=== PATIENT | female | born 1955 | race Caucasian/White ===

== ENCOUNTER → 2019-03-05 09:23 | Outpatient (CLI) | payer MEDICARE, SELFPAY ==
[2019-03-05 14:11] LABS: Alanine Aminotransferase 22 U/L (12-78); Albumin Level 3.6 gm/dL (3.4-5.0); Albumin/Globulin Ratio 1.2 (1.1-1.8); Alkaline Phosphatase 61 U/L (46-116); Anion Gap 12.5 mEq/L (5-15); Aspartate Amino Transferase 11 U/L (15-37); Bilirubin,Total 0.5 mg/dL (0.2-1.0); Blood Urea Nitrogen 13 mg/dL (7-18); Calcium 8.5 mg/dL (8.5-10.1); Carbon Dioxide 29 mmol/L (21.0-32.0); Chloride 104 mmol/L (98-107); Creatinine,Serum 0.64 mg/dL (0.55-1.02); Estimated Glomerular Filt Rate 93 ml/min (>60); GFR (African American) 112 ML/MIN (>60); Globulin 2.9 gm/dl (1.3-3.2); Glucose 93 mg/dL (74-106); Potassium 4.5 mmoL/L (3.5-5.1); Sodium 141 mmol/L (136-145); Total Protein,Serum 6.5 gm/dL (6.4-8.2)
== END ==
PROVIDERS: PCP Nurse Practitioner Family; Visit Provider Nurse Practitioner Family
DX: I10 Essential (primary) hypertension (principal)
CPT/HCPCS: 36415; 80053

== ENCOUNTER → 2021-04-13 13:03 | Outpatient (CLI) | payer MEDICARE, SELFPAY ==
--- NOTE | 2021-04-13 13:06 | XR_ITS ---
PROCEDURE: XR DEXA AXIAL SKELETON CLINICAL HISTORY: AGE-RELATED OSTEOPOROSIS W/O CURRENT PATHOLOGICAL FRACTURE COMPARISON: No exams were available for comparison FINDINGS: The right hip BMD is 0.687 with a T-score of -1.5. The left hip BMD is 0.681 with a T-score of -1.5. The lumbar spine BMD is 1.117 with a T-score of 0.6. IMPRESSION: This patient is considered osteopenic according to the World Health Organization criteria. Bone density is between 10 and 25 percent below young normal. Fracture risk is moderate. Treatment is advised. Based on these results a follow-up exam is recommended in 2 year. Dictated by: Efrain Neal MD 04/13/2021 20:22 Efrain Neal MD in [place] 04/16/2021 08:37
== END ==
PROVIDERS: PCP Nurse Practitioner Family; Visit Provider Nurse Practitioner Family
DX: M81.0 Age-related osteoporosis without current pathological fracture (principal)
CPT/HCPCS: 77080

== ENCOUNTER → 2022-10-25 14:21 | Outpatient (CLI) | payer MEDICARE, SELFPAY ==
--- NOTE | 2022-10-25 14:28 | XR_ITS ---
FINAL REPORT CLINICAL HISTORY: HIP right hip pain after fall after thanksgiving FINDINGS: Right hip Three views were obtained. There is no acute fracture or dislocation. There is a small bone island in the proximal femoral shaft. There is mild cortical thickening in the proximal femoral shaft laterally, probably related to tendon attachment. The joint spaces appear normal. No soft tissue abnormality is identified. IMPRESSION: No acute process. Reviewed, Interpreted and Dictated by Austin Storey MD Transcribed by Mary Jo Frederick Authenticated and [facility]
== END ==
PROVIDERS: PCP Nurse Practitioner Family; Visit Provider Nurse Practitioner Family
DX: M25.551 Pain in right hip (principal)
CPT/HCPCS: 73502

== ENCOUNTER → 2023-01-21 16:19 | Outpatient (CLI) | payer MEDICARE, SELFPAY ==
--- NOTE | 2023-01-21 16:28 | XR_ITS ---
PROCEDURE INFORMATION: Exam: XR Right Hip Exam date and time: 01/21/2023 4:33 PM Age: 68 years old Clinical indication: Pain and injury or trauma; Fall; Blunt trauma (contusions or hematomas); Hip pain; Right hip; Additional info: Pain in right hip joint, fell aug 2022 & fell yesterday. Pain is worse since most recent fall. No prior SX. TECHNIQUE: Imaging protocol: Radiologic exam of the right hip. Views: 2 or 3 views hip with pelvis when performed. COMPARISON: CR XR HIP RT 2-3V W/PELVIS 10/25/2022 2:30 PM FINDINGS: Bones/joints: Cortical thickening along the lateral aspect of the right proximal femoral diaphysis with traverse intracortical fracture line involving the thickened cortex. Findings consistent with stress fracture with strong association with bisphosphonate usage. Finding is similar to prior. Femoral head is well seated within the acetabulum bilaterally. Mild degenerative changes of both hips. Soft tissues: Unremarkable. Vasculature: Multiple phleboliths in the pelvis noted. IMPRESSION: Cortical thickening along the lateral aspect of the right proximal femoral diaphysis with traverse intracortical fracture line involving the thickened cortex. Findings consistent with stress fracture with strong association with bisphosphonate usage.
== END ==
PROVIDERS: PCP Nurse Practitioner Family; Visit Provider Nurse Practitioner Family
DX: M25.551 Pain in right hip (principal)
CPT/HCPCS: 73502

== ENCOUNTER 2023-04-23 09:00 | Outpatient (RCR) | payer MEDICARE, SELFPAY | END 2023-04-28 13:55 | disposition home or self-care (01) | LOC: PT 09:00 | PROVIDERS: PCP Nurse Practitioner Family; Visit Provider Orthopaedic Surgery | DX: M25.551 Pain in right hip (principal); M84.351A Stress fracture, right femur, initial encounter for fracture | CPT/HCPCS: 97010; 97014; 97110; 97112; 97163; 97164; 97530; G0283 ==

== ENCOUNTER 2024-03-22 15:13 | Outpatient (CLI) | payer MEDICARE, SELFPAY ==
--- NOTE | 2024-03-22 15:18 | MR_ITS ---
FINAL REPORT CLINICAL HISTORY: PAIN OF LEFT SHOULDER JOINT NKI LIMITED ROM FINDINGS: Multiplanar MR imaging of the left shoulder was performed without contrast. A partial-thickness articular surface tear is seen of the distal infraspinatus tendon involving less than 50% of the thickness of the tendon. No full-thickness rotator cuff tear is identified. The a.c. joint is intact. A small amount of fluid is present in the subacromial/subdeltoid bursa. The glenoid labrum is intact. The long head of the biceps tendon is intact. A small glenohumeral joint effusion is seen. There is no evidence of fracture or dislocation. The musculature is intact. Thickening and heterogeneity is seen of the joint capsule at the axillary recess consistent with adhesive capsulitis. IMPRESSION: Small partial-thickness articular surface tear of the distal infraspinatus tendon without evidence of full-thickness rotator cuff tear. Findings consistent with adhesive capsulitis. Authenticated and [facility]
== END 2024-03-22 23:59 | disposition home or self-care (01) ==
LOC: RAD 15:14
PROVIDERS: PCP Nurse Practitioner Family; Visit Provider Nurse Practitioner Family
DX: M25.512 Pain in left shoulder (principal)
CPT/HCPCS: 73221

== ENCOUNTER 2024-04-01 13:44 | Outpatient (CLI) | payer MEDICARE, SELFPAY ==
--- NOTE | 2024-04-01 13:49 | XR_ITS ---
FINAL REPORT CLINICAL HISTORY: Foot Pain COMPARISON: None FINDINGS: RIGHT FOOT 3 views of the right foot were obtained. There is no acute fracture or dislocation. There is mild degenerative change. Visualized joint spaces are normally aligned. Soft tissues are unremarkable. IMPRESSION: Mild degenerative change without acute bony abnormality. Reviewed, Interpreted and Dictated by Henri Rodney III, MD Transcribed by Olga Shearer Authenticated and [facility]
--- NOTE | 2024-04-01 13:49 | XR_ITS ---
FINAL REPORT CLINICAL HISTORY: Foot Pain COMPARISON: None FINDINGS: LEFT FOOT Three views of the left foot demonstrate no acute fracture or dislocation. There is moderate degenerative change of the 1st MTP. There is mild degenerative change elsewhere in the foot. The visualized joint spaces are normally aligned. The soft tissues are unremarkable. IMPRESSION: Degenerative changes without acute bony abnormality. Reviewed, Interpreted and Dictated by Henri Rodney III, MD Transcribed by Olga Shearer Authenticated and . [facility]
== END 2024-04-01 23:59 | disposition home or self-care (01) ==
LOC: RAD 13:45
PROVIDERS: PCP Nurse Practitioner Family; Visit Provider Podiatrist
DX: M79.671 Pain in right foot (principal); M79.672 Pain in left foot
CPT/HCPCS: 73630

== ENCOUNTER 2024-05-27 08:00 | Outpatient (RCR) | payer MEDICARE, SELFPAY | END 2024-06-08 14:45 | disposition home or self-care (01) | LOC: PT 08:00 | PROVIDERS: Visit Provider Nurse Practitioner Family | DX: M75.122 Complete rotator cuff tear or rupture of left shoulder, not specified as traumatic (principal) | CPT/HCPCS: 97010; 97014; 97110; 97140; 97163; 97164; 97530; G0283 ==

== ENCOUNTER 2025-05-08 18:49 | Emergency (ER) | payer MEDICARE, SELFPAY ==
[2025-05-08 18:50] VITALS: BP 175/78; PULSE 70; RESP 18; TEMP 36.7; O2SAT 99; BMI 25.7
--- OUTSIDE RECORDS SUMMARY | 2025-05-08 19:00 | XMS_ITS | Encounter Summary ---
Author Organization [employer] ([place], [place], [place], [place]) Address [address] [place] [address] Care Team Providers Care Scrap Preparation Supervisor Name Role Phone Cherrie Leyva APRN Primary Care Provider [phone] Reason for Referral * Nuclear Medicine (Routine) - Closed Specialty Diagnoses / Procedures Referred By Tatiana t Referred To Contact Diagnoses Left hip pain Right hip pain Procedures NM bone scan whole body Provider, Not In System [place] Referral ID Status Reason Start Date Expiration Date Visits Re quested Visits Authorized [id number] Closed 01/24/2023 07/23/2023 1 1 Encounter Details Date Type Department Care Team (Late st Contact Info) Description 01/24/2023 Outside Orders [facility] Central Scheduling [address] [place] [address] Althea Pickard RN Bilateral hip pain (Primary Dx); Left hip pain; Right hip pain Social History Tobacco Use Types Packs/Day Years Used Date Smoking Tobacco: Never Assessed Comments Unknown Sex and Gender Information Value Date Recorded Sex Assigned at Not on file Legal Sex Female 12:46 PM CDT Gender Identity Not on file Sexual Orientation Not on file documented as of this encounter Plan of Treatment Not on file documented as of this encounter Results * NM bone scan whole body (02/06/2023 2:18 PM EDT) Anatomical Region Laterality Modality Bone Nuclear Medicine 02/06/2023 3:31 PM EDT Impressions 02/06/2023 3:44 PM EDT There is focal activity in the proximal right and left femoral shafts. Bilateral femur x-rays are recommended. Images reviewed, interpreted, and dictated by Dr. Don Garcia. Transcribed by Gabriel Gómez (Jonathon). Narrative 02/06/2023 3:44 PM EDT TOTAL BODY BONE SCAN HISTORY: Right hip pain. COMPARISON: Existing relevant imaging studies: None. COMPARISON: Previous bone scan: May 2008. PROCEDURE: The patient was injected with 29.8 mCi of technetium 99m MDP. Three hour delayed images were obtained. FINDINGS: Renal and soft tissue uptake are normal. There is focal activity in the proximal right and left femoral shafts. No other abnormal tracer activity is identified to suggest occult fracture or metastatic disease. Procedure Note Aydin Garcia MD - 02/06/2023 TOTAL BODY BONE SCAN HISTORY: Right hip pain. COMPARISON: Existing relevant imaging studies: None. COMPARISON: Previous bone scan: May 2008. PROCEDURE: The patient was injected with 29.8 mCi of technetium 99m MDP. Three hour delayed images were obtained. FINDINGS: Renal and soft tissue uptake are normal. There is focal activity in the proximal right and left femoral shafts. No other abnormal tracer activity is identified to suggest occult fracture or metastatic disease. IMPRESSION: There is focal activity in the proximal right and left femoral shafts. Bilateral femur x-rays are recommended. Images reviewed, interpreted, and dictated by Dr. Don Garcia. Transcribed by Gabriel Gómez (Jonathon). us Not In System Provider IMG NM ORDERABLES Final R esult documented in this encounter Visit Diagnoses Diagnosis Bilateral hip pain- Primary Pain in joint, pelvic region and thigh Left hip pain Pain in joint, pelvic region and thigh Right hip pain Pain in joint, pelvic region and thigh Left hip pain Pain in joint, pelvic region and thigh Right hip pain Pain in joint, pelvic region and thigh documented in this encounter Care Teams Scrap Preparation Supervisor Relationship Specialty Start Date End Date Cherrie Leyva, SECURITY CLERK [address] [place] [id number] PCP - General Family Medicine 02/06/23 documented as of this encounter
--- OUTSIDE RECORDS SUMMARY | 2025-05-08 19:00 | XMS_ITS | Data Portability ---
Author Organization [employer] [facility] Address [address] [place] [address] Assessment Encounter Date Assessment Date Assessment LastModified by Organization Details LastModified Time 04/28/2024 04/28/2024 Patient presente d to office today for their Medicare Annual Wellness Visit. Education was provided on healthy nutrition, including a diet rich in fruits and vegetables, minimizing simple carbohydrates, salt, and saturated fats. Encouraged regular cardiovascular exercise such as walking at least 30 minutes daily, 5 times per week. Emphasized preventive health measures and educated pt on fall prevention and community-based lifestyle interventions to help reduce health risks and promote healthy living. 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 If she is unable to schedule with their office in the next few weeks, she would like to try a female provider at [facility]. Urine was normal on dipstick today, will send for culture to r/o infection. Follow up if no improvement or worsening and as needed. Not available 05/12/2024 10:37:27 Plan of Treatment Reminders Order Date Submit Date Provider Last Modified By Organization Details Last Modified Time Details Appointments FOLLOW UP 30 2025 09:00A Alyson Leyva APRN Not available Not available Not available Lab lipid panel, serum 2024 025 [place] [facility], [address] [place] [address], [place], [address], 10/30/2024 08:11:43 vitamin D, 25-hydrox y, total, serum 2024 025 [place] [facility] ([place]), [address] [facility], [place], [address], 10/30/2024 08:11:43 TSH, ultra-sen sitive, serum 2024 025 [place] [facility] ([place]), [address] [facility], [place], [address], 10/30/2024 08:11:44 CBC w/ auto diff 2024 025 [place] [facility] ([place]), [address] [facility], [place], [address], 10/30/2024 08:11:42 CMP, serum or plasma 2024 025 [place] [facility] [address] [facility], [place], [address], 10/30/2024 08:11:43 rapid flu (A+B) [address], [address], 09/22/2024 15:52:10 rapid SARS CoV 2 Ag, QL, IA, upper respirato ry specimen 2023 024 [facility], [address] [place] [address], [address], 09/22/2024 15:52:15 urinalysi s, dipstick 2023 024 [email or web address] [facility], [address] [place] [address], [address], 05/12/2024 10:36:17 culture, urine 2023 024 [facility], [address], [place], [address], 05/16/2024 09:38:02 vitamin D, 25-hydrox y, total, serum 2023 024 [employer] [facility], [address], [place], [address], 04/29/2024 08:29:08 CMP, serum or plasma 2023 024 [employer] [facility], [address], [place], [address], 04/29/2024 08:29:08 Referral orthopedi c surgeon referral - Malunion right hip fracture in pt with osteoporo sis 2024 025 ARETHA Florez MD, [address] [facility], [address], [place], [address], 05/02/2025 16:28:46 gynecolog ist referral - ELKIN (cannot go on May 21 - any other day is fine) 2023 024 JESSICAGUY Ribera MD, [address] [facility], [place], [address], 05/28/2024 09:55:50 physical therapist referral 2023 [facility], [address], [place], [address], 05/12/2024 13:28:58 Procedures None recorded. Surgeries None recorded. Imaging None recorded. Medication Orders meloxicam 15 mg tablet [address] [facility] (Now [facility]), [address], [place], [address], 05/02/2025 13:38:42 hydrochlo rothiazid e 12.5 mg tablet [address] [facility] ([facility]), [address], [place], [address], 05/02/2025 13:38:42 metoprolo l succinate ER 25 mg tablet,ex tended release 24 hr [address] [facility] ([facility]), [address], [place], [address], 05/02/2025 13:38:43 simvastat in 20 mg tablet [address] [facility] (Now [facility]), [address], [place], [address], 10/29/2024 11:09:42 meloxicam 15 mg tablet [address] [facility] ([facility]), [address], [place], [address], 10/29/2024 11:09:44 hydrochlo rothiazid e 12.5 mg tablet 2024 025 [facility], [address], [place], [address], 10/29/2024 11:09:42 metoprolo l succinate ER 25 mg tablet,ex tended release 24 hr [address] [facility] ([facility]), [address], [place], [address], 10/29/2024 11:09:43 azithromy sue 250 mg tablet 2023 025 [facility], [address] [place] [address], [address], 10/29/2024 11:03:36 promethaz ine-DM 6.25 mg-15 mg/5 mL oral syrup 2023 025 [facility], [address] [place] [address], [address], 10/29/2024 11:03:38 cetirizin e 5 mg tablet 2023 024 [facility], [address] [place], [address], 12/24/2024 09:52:21 Patient TargetsNo targets recorded. Patient Instructions Encounter Date Encounter Id Patient Instructions Last Modified By Organization Details Last Modified Time 04/28/2024 [id number] advance care planning: care instructions Not available 04/28/2024 14:08:29 Discussed and explained advance directives such as standard forms to the . Face to face discussion lasted for a duration of ___ minutes. Not available 04/28/2024 13:51:47 05/12/2024 [id number] vaginal bleeding after menopause: care instructions Not available 05/12/2024 10:36:14 Reason for Referral Physical Therapist Referral for Adhesive capsulitis of left shoulder Referring Physician: [facility], Encounter Date: 04/28/2024 [employer] Referral for Po stmenopausal bleeding ELKIN (cannot go on May 21 - any other day is fine) Referring Physician: Sissy Szymanski [facility], Encounter Date: 05/12/2024 Orthopedic Surgeon Referral for History of hip fracture Malunion right hip fracture in pt with osteoporosis Referring Physician: [facility], Encounter Date: 05/02/2025 Results Created Date Observation Date Name Description Value Unit Range Abnormal Flag Note LastModifiedBy Organization Detail LastModifiedTime 04/28/2004/29/2024 COMPR EHENS ERIKA METAB OLIC PANEL glucose 87 mg/dL 65-139 normal Non-f astin g refer ence inter lawson Not Available [facility] [address] [facility] [place], [address], 04/29/2024 08:29:08 04/28/20 24 04/29/2024 COMPR EHENS ERIKA METAB OLIC PANEL urea nitrogen (BUN) 15 mg/dL 7-25 normal Not Available [employer] [facility] [address] [place], [address], 04/29/2024 08:29:08 04/28/20 24 04/29/2024 COMPR EHENS ERIKA METAB OLIC PANEL creatinine 0.70 mg/dL 0.60-1 .00 normal Not Available [facility] [address] [place], [address], 04/29/2024 08:29:08 04/28/20 24 04/29/2024 COMPR EHENS ERIKA METAB OLIC PANEL eGFR 92 mL/mi n/1.7 3m2 > or = 60 normal Not Available [facility] [address] [place], [address], 04/29/2024 08:29:08 04/28/20 24 04/29/2024 COMPR EHENS ERIKA METAB OLIC PANEL BUN/creatini ne ratio SEE NOTE: (calc ) 6-22 Not Repor megan: BUN and Creat inine are withi n refer ence range . Not Available [employer] [facility] [address] [place], [address], 04/29/2024 08:29:08 04/28/20 24 04/29/2024 COMPR EHENS ERIKA METAB OLIC PANEL sodium 139 mmol/ L 135-14 6 normal Not Available [employer] [facility] [address] [place], [address], 04/29/2024 08:29:08 04/28/20 24 04/29/2024 COMPR EHENS ERIKA METAB OLIC PANEL potassium 3.8 mmol/ L 3.5-5. 3 normal Not Available [employer] [facility] [address] [place], [address], 04/29/2024 08:29:08 04/28/20 24 04/29/2024 COMPR EHENS ERIKA METAB OLIC PANEL chloride 101 mmol/ L 98-110 normal Not Available [facility] [address] [facility] [place], [address], 04/29/2024 08:29:08 04/28/20 24 04/29/2024 COMPR EHENS ERIKA METAB OLIC PANEL carbon dioxide 29 mmol/ L 20-32 normal Not Available [facility] [address] [place], [address], 04/29/2024 08:29:08 04/28/20 24 04/29/2024 COMPR EHENS ERIKA METAB OLIC PANEL calcium 9.7 mg/dL 8.6-10 .4 normal Not Available [facility] [address] [facility] [place], [address], 04/29/2024 08:29:08 04/28/20 24 04/29/2024 COMPR EHENS ERIKA METAB OLIC PANEL protein, total 6.9 g/dL 6.1-8. 1 normal Not Available [facility] [address] [place], [address], 04/29/2024 08:29:08 04/28/20 24 04/29/2024 COMPR EHENS ERIKA METAB OLIC PANEL albumin 4.4 g/dL 3.6-5. 1 normal Not Available [facility] [address] [place], [address], 04/29/2024 08:29:08 04/28/20 24 04/29/2024 COMPR EHENS ERIKA METAB OLIC PANEL globulin 2.5 g/dL_ (calc ) 1.9-3. 7 normal Not Available [facility] [address] [place], [address], 04/29/2024 08:29:08 04/28/20 24 04/29/2024 COMPR EHENS ERIKA METAB OLIC PANEL albumin/glob ulin ratio 1.8 (calc ) 1.0-2. 5 normal Not Available [facility] [employer] [facility] [address] [place], [address], 04/29/2024 08:29:08 04/28/20 24 04/29/2024 COMPR EHENS ERIKA METAB OLIC PANEL bilirubin, total 0.4 mg/dL 0.2-1. 2 normal Not Available [facility] [employer] [facility] [address] [place], [address], 04/29/2024 08:29:08 04/28/20 24 04/29/2024 COMPR EHENS ERIKA METAB OLIC PANEL alkaline phosphatase 70 U/L 37-153 normal Not Available [employer] [facility] [address] [place], [address], 04/29/2024 08:29:08 04/28/20 24 04/29/2024 COMPR EHENS ERIKA METAB OLIC PANEL AST 13 U/L 10-35 normal Not Available [facility] [employer] [facility] [address] [place], [address], 04/29/2024 08:29:08 04/28/20 24 04/29/2024 COMPR EHENS ERIKA METAB OLIC PANEL ALT 8 U/L 6-29 normal Not Available [facility] [employer] [facility] [address] [place], [address], 04/29/2024 08:29:08 04/28/20 24 04/29/2024 VITAM IN D,25- OH,TO URSULA,I A vitamin D,25-oh,tota l,ia 13 NG/mL 30-100 low Vitam in D Statu s 25-OH Vitam in D: Defic iency : <20 ng/mL Insuf ficie ncy: 20 - 29 ng/mL Optim al: > or = 30 ng/mL For 25-OH Vitam in D testi ng on patie nts on D2-yeh pplem entat ion and patie nts for whom quant itati on of D2 and D3 fract ions is requi red, the [facility] e[facility](TM ) 25-OH VIT D, (D2,D 3), LC/MS /MS is recom joseph d: order code 20856 (sendy ents >2yrs ). See Note 1 Note 1 For addit ional infor rossana morgan refer to http: //blaire Ferguson stDia gnost ics.c om/fa q/FAQ 199 (This link is being provi ded for infor theodora branch/ educa luz marina monge purpo ses only. ) Not Available [facility] [address] [facility], [place], [address], 04/29/2024 08:29:08 05/12/20 24 05/16/2024 CULTU RE, URINE , ROUTI NE culture, urine, routine SEE NOTE abnormal CULTU RE, URINE , ROUTI NE Micro Numbe r: [id number] Test Statu s: Final Speci men Sourc e: Urine Speci men Quali ty: Adequ ate Resul t: 50,00 0-100 ,000 CFU/m L of Klebs iella pneum oniae 50,00 0-100 ,000 CFU/m L of Enter ococc shin Moniquee goran ae EDeshaunhong calis ----- ----- ----- - ----- ----- ----- - INT WILLAM INT WILLAM AMOX/ CLAVU LANAT E S <=2 * AMPIC ILLIN * S <=2 AMP/S ULBAC SANCHEZ S 4 * CEFAZ MAYTE NR <=4 2 * CEFEP ALYCIA S <= 0.12 * CEFTA ZIDIM E S <=1 * CEFTR IAXON E S <=0.2 5 * CIPRO FLOXA SUE S <=0.0 6 * GENTA MICIN S <=1 * IMIPE NEM S <=0.2 5 * LEVOF LOXAC IN S <=0.1 2 * MEROP ENEM S <=0.2 5 * NITRO FURAN TOIN I 64 S <=16 PIP/T AZOBA CTAM S <=4 * TRIME THOPR IM/YEH LFA S <=20 * VANCO MYCIN * S 2 S=Hanna cepti ble I=Int ermed iate R=Res istan t * = Not Teste d NR = Not Repor megan NN = See Thera py Comme nts THERA PY COMME NTS Note 1: For infec tions other than uncom plica megan UTI cause d by E. coli, K. pneum oniae or P. mirab ilis: Cefaz mayte is resis tant if WILLAM > or = 8 mcg/m L. (Dist ingui shing susce ptibl e versu s inter media te for isola braydon with WILLAM < or = 4 mcg/m L requi res addit ional testi ng.) Note 2: For uncom plica megan UTI cause d by E. coli, K. pneum oniae or P. mirab ilis: Cefaz mayte is susce ptibl e if WILLAM <32 mcg/m L and predi cts susce ptibl e to the oral agent s cefac felice, cefdi dulce, cefpo doxim e, cefpr ozil, cefur oxime , cepha lexin and lorac arbef . Not Available [employer] [facility] [address] [place] [address], [place], [address], 05/16/2024 09:38:02 05/12/20 24 05/12/2024 urina lysis , dipst ick Leukocytes Negati ve Not Available [address], [address], 05/12/2024 10:14:32 05/12/20 24 05/12/2024 urina lysis , dipst ick Nitrite negati ve Not Available [address], [address], 05/12/2024 10:14:32 05/12/20 24 05/12/2024 urina lysis , dipst ick Urobilinogen .2 Not Available [facility] [address], [address], 05/12/2024 10:14:32 05/12/20 24 05/12/2024 urina lysis , dipst ick Protein Negati ve Not Available [address], [address], 05/12/2024 10:14:32 05/12/20 24 05/12/2024 urina lysis , dipst ick pH 7.5 Not Available [address], [address], 05/12/2024 10:14:32 05/12/2005/12/2024 urina lysis , dipst ick Blood Negati ve Not Available [address], [address], 05/12/2024 10:14:32 05/12/20 24 05/12/2024 urina lysis , dipst ick Specific Mcfaddin 1.015 Not Available [address], [address], 05/12/2024 10:14:32 05/12/20 24 05/12/2024 urina lysis , dipst ick Ketone Negati ve Not Available [address], [address], 05/12/2024 10:14:32 05/12/2005/12/2024 urina lysis , dipst ick Bilirubin Negati ve Not Available [address], [address], 05/12/2024 10:14:32 05/12/2005/12/2024 urina lysis , dipst ick Glucose Negati ve Not Available [address], [address], 05/12/2024 10:14:32 05/12/20 24 05/12/2024 urina lysis , dipst ick Appearance Clear Not Available [address], [address], 05/12/2024 10:14:32 05/12/20 24 05/12/2024 urina lysis , dipst ick Color Dark Yellow Not Available [address], [address], 05/12/2024 10:14:32 09/22/20 24 09/22/2024 rapid SARS CoV 2 Ag, QL, IA, upper respi rator y speci men SARS CoV Ag negati ve Not Available [address], [address], 09/22/2024 15:33:01 09/22/20 24 09/22/2024 rapid flu (A+B) Flu A negati ve Not Available [address], [address], 09/22/2024 15:32:55 09/22/20 24 09/22/2024 rapid flu (A+B) Flu B negati ve Not Available [address], [address], 09/22/2024 15:32:55 10/29/19 25 10/30/2024 CBC WITH DIFFE RENTI AL/PL ATELE T WBC 6.9 x10e3 /uL 3.4-10 .8 normal Not Available [facility] ([facility]) [address] [facility], [place], [address], 10/30/2024 08:11:42 10/29/19 25 10/30/2024 CBC WITH DIFFE RENTI AL/PL ATELE T RBC 4.97 x10e6 /uL 3.77-5 .28 normal Not Available [facility] ([facility]) [address] [facility], [place], [address], 10/30/2024 08:11:42 10/29/19 25 10/30/2024 CBC WITH DIFFE RENTI AL/PL ATELE T hemoglobin 14.4 g/dL 11.1-1 5.9 normal Not Available [facility] ([facility]) [address] [facility], [place], [address], 10/30/2024 08:11:42 10/29/19 25 10/30/2024 CBC WITH DIFFE RENTI AL/PL ATELE T hematocrit 44.9 % 34.0-4 6.6 normal Not Available [facility] ([facility]) [address] [facility], [place], [address], 10/30/2024 08:11:42 10/29/19 25 10/30/2024 CBC WITH DIFFE RENTI AL/PL ATELE T MCV 90 fL 79-97 normal Not Available [facility] ([facility]) [address] [place], [address], 10/30/2024 08:11:42 10/29/19 25 10/30/2024 CBC WITH DIFFE RENTI AL/PL ATELE T MCH 29.0 pg 26.6-3 3.0 normal Not Available [facility] ([facility]) [address] [place], [address], 10/30/2024 08:11:42 10/29/19 25 10/30/2024 CBC WITH DIFFE RENTI AL/PL ATELE T MCHC 32.1 g/dL 31.5-3 5.7 normal Not Available [facility] ([facility]) [address] [place], [address], 10/30/2024 08:11:42 10/29/19 25 10/30/2024 CBC WITH DIFFE RENTI AL/PL ATELE T RDW 12.4 % 11.7-1 5.4 Not Available [facility] ([facility]) [address] [facility], [place], [address], 10/30/2024 08:11:42 10/29/19 25 10/30/2024 CBC WITH DIFFE RENTI AL/PL ATELE T platelets 278 x10e3 /uL 150-45 0 normal Not Available [facility] ([facility]) [address] [facility], [place], [address], 10/30/2024 08:11:42 10/29/19 25 10/30/2024 CBC WITH DIFFE RENTI AL/PL ATELE T neutrophils 56 % not estab. normal Not Available [facility] ([facility]) [address] [facility], [place], [address], 10/30/2024 08:11:42 10/29/19 25 10/30/2024 CBC WITH DIFFE RENTI AL/PL ATELE T lymphs 29 % not estab. normal Not Available [facility] ([facility]) [address] [facility], [place], [address], 10/30/2024 08:11:42 10/29/19 25 10/30/2024 CBC WITH DIFFE RENTI AL/PL ATELE T monocytes 10 % not estab. normal Not Available [facility] ([facility]) [address] [facility], [place], [address], 10/30/2024 08:11:42 10/29/19 25 10/30/2024 CBC WITH DIFFE RENTI AL/PL ATELE T eos 3 % not estab. normal Not Available [facility] ([facility]) [address] [facility], [place], [address], 10/30/2024 08:11:42 10/29/19 25 10/30/2024 CBC WITH DIFFE RENTI AL/PL ATELE T basos 1 % not estab. normal Not Available [facility] ([facility]) [address] [facility], [place], [address], 10/30/2024 08:11:42 10/29/19 25 10/30/2024 CBC WITH DIFFE RENTI AL/PL ATELE T immature cells [employer] Not Available [facility] ([facility]) [address] [facility], [place], [address], 10/30/2024 08:11:42 10/29/19 25 10/30/2024 CBC WITH DIFFE RENTI AL/PL ATELE T neutrophils (absolute) 4.0 x10e3 /uL 1.4-7. 0 normal Not Available [facility] ([facility]) [address] [facility], [place], [address], 10/30/2024 08:11:42 10/29/19 25 10/30/2024 CBC WITH DIFFE RENTI AL/PL ATELE T lymphs (absolute) 2.0 x10e3 /uL 0.7-3. 1 normal Not Available [facility] ([facility]) [address] [place], [address], 10/30/2024 08:11:42 10/29/19 25 10/30/2024 CBC WITH DIFFE RENTI AL/PL ATELE T monocytes(ab solute) 0.7 x10e3 /uL 0.1-0. 9 normal Not Available [facility] ([facility]) [address] [place], [address], 10/30/2024 08:11:42 10/29/19 25 10/30/2024 CBC WITH DIFFE RENTI AL/PL ATELE T eos (absolute) 0.2 x10e3 /uL 0.0-0. 4 normal Not Available [facility] ([facility]) [address] [place], [address], 10/30/2024 08:11:42 10/29/19 25 10/30/2024 CBC WITH DIFFE RENTI AL/PL ATELE T baso (absolute) 0.0 x10e3 /uL 0.0-0. 2 normal Not Available [facility] ([facility]) [address] [facility], [place], [address], 10/30/2024 08:11:42 10/29/19 25 10/30/2024 CBC WITH DIFFE RENTI AL/PL ATELE T immature granulocytes 1 % not estab. Not Available [facility] ([facility]) [address] [facility], [place], [address], 10/30/2024 08:11:42 10/29/19 25 10/30/2024 CBC WITH DIFFE RENTI AL/PL ATELE T immature grans (abs) 0.0 x10e3 /uL 0.0-0. 1 Not Available [facility] ([facility]) [address] [facility], [place], [address], 10/30/2024 08:11:42 10/29/19 25 10/30/2024 CBC WITH DIFFE RENTI AL/PL ATELE T NRBC [employer] Not Available [facility] ([facility]) [address] [facility], [place], [address], 10/30/2024 08:11:42 10/29/19 25 10/30/2024 CBC WITH DIFFE RENTI AL/PL ATELE T hematology comments: [employer] Not Available [facility] ([facility]) [address] [facility], [place], [address], 10/30/2024 08:11:42 10/29/19 25 10/30/2024 COMP. METAB OLIC PANEL (14) glucose 94 mg/dL 70-99 normal Not Available [facility] ([facility]) [address] [facility] [place], [address], 10/30/2024 08:11:42 10/29/19 25 10/30/2024 COMP. METAB OLIC PANEL (14) BUN 11 mg/dL 8-27 normal Not Available [facility] ([facility]) [address] [place], [address], 10/30/2024 08:11:42 10/29/19 25 10/30/2024 COMP. METAB OLIC PANEL (14) creatinine 0.69 mg/dL 0.57-1 .00 normal Not Available [facility] ([facility]) [address] [facility] [place], [address], 10/30/2024 08:11:42 10/29/19 25 10/30/2024 COMP. METAB OLIC PANEL (14) eGFR 93 mL/mi n/1.7 3 >59 normal Not Available [facility] ([facility]) [address] [facility] [place], [address], 10/30/2024 08:11:42 10/29/19 25 10/30/2024 COMP. METAB OLIC PANEL (14) BUN/creatini ne ratio 16 12-28 normal Not Available [facility] ([facility]) [address] [facility] [place], [address], 10/30/2024 08:11:42 10/29/19 25 10/30/2024 COMP. METAB OLIC PANEL (14) sodium 140 mmol/ L 134-14 4 normal Not Available [facility] ([facility]) [address] [facility] [place], [address], 10/30/2024 08:11:42 10/29/19 25 10/30/2024 COMP. METAB OLIC PANEL (14) potassium 4.0 mmol/ L 3.5-5. 2 normal Not Available [facility] ([facility]) [address] [facility] [place], [address], 10/30/2024 08:11:42 10/29/19 25 10/30/2024 COMP. METAB OLIC PANEL (14) chloride 99 mmol/ L 96-106 normal Not Available [facility] ([facility]) [address] [facility] [place], [address], 10/30/2024 08:11:42 10/29/19 25 10/30/2024 COMP. METAB OLIC PANEL (14) carbon dioxide, total 25 mmol/ L 20-29 normal Not Available [facility] ([facility]) [address] [facility] [place], [address], 10/30/2024 08:11:42 10/29/19 25 10/30/2024 COMP. METAB OLIC PANEL (14) calcium 9.6 mg/dL 8.7-10 .3 normal Not Available [facility] ([facility]) [address] [facility] [place], [address], 10/30/2024 08:11:42 10/29/19 25 10/30/2024 COMP. METAB OLIC PANEL (14) protein, total 6.8 g/dL 6.0-8. 5 normal Not Available [facility] ([facility]) [address] [facility] [place], [address], 10/30/2024 08:11:42 10/29/19 25 10/30/2024 COMP. METAB OLIC PANEL (14) albumin 4.4 g/dL 3.8-4. 8 normal Not Available [facility] ([facility]) [address] [facility] [place], [address], 10/30/2024 08:11:42 10/29/19 25 10/30/2024 COMP. METAB OLIC PANEL (14) globulin, total 2.4 g/dL 1.5-4. 5 Not Available [facility] ([facility]) [address] [facility] [place], [address], 10/30/2024 08:11:42 10/29/19 25 10/30/2024 COMP. METAB OLIC PANEL (14) bilirubin, total 0.5 mg/dL 0.0-1. 2 normal Not Available [facility] ([facility]) [address] [facility] [place], [address], 10/30/2024 08:11:42 10/29/19 25 10/30/2024 COMP. METAB OLIC PANEL (14) alkaline phosphatase 67 IU/L 44-121 normal Not Available [facility] ([facility]) [address] [facility] [place], [address], 10/30/2024 08:11:42 10/29/19 25 10/30/2024 COMP. METAB OLIC PANEL (14) AST (SGOT) 20 IU/L 0-40 normal Not Available [facility] ([facility]) [address] [facility] [place], [address], 10/30/2024 08:11:42 10/29/19 25 10/30/2024 COMP. METAB OLIC PANEL (14) ALT (SGPT) 12 IU/L 0-32 normal Not Available [facility] ([facility]) [address] [place], [address], 10/30/2024 08:11:42 10/29/19 25 10/30/2024 LIPID PANEL cholesterol, total 286 mg/dL 100-19 9 above high normal Not Available [facility] ([facility]) [address] [place], [address], 10/30/2024 08:11:43 10/29/19 25 10/30/2024 LIPID PANEL triglyceride s 113 mg/dL 0-149 normal Not Available [facility] ([facility]) [address] [place], [address], 10/30/2024 08:11:43 10/29/19 25 10/30/2024 LIPID PANEL HDL cholesterol 70 mg/dL >39 normal Not Available [facility] ([facility]) [address] [place], [address], 10/30/2024 08:11:43 10/29/19 25 10/30/2024 LIPID PANEL VLDL cholesterol marly 20 mg/dL 5-40 Not Available [facility] ([facility]) [address] [place], [address], 10/30/2024 08:11:43 10/29/19 25 10/30/2024 LIPID PANEL LDL chol calc ([facility]) 196 mg/dL 0-99 above high normal Not Available [facility] ([facility]) [address] [facility], [place], [address], 10/30/2024 08:11:43 10/29/19 25 10/30/2024 LIPID PANEL LDL calc comment: Commen t Consi peace evalu ating for Famil ial Hyper brianne stero lemia (FH), if clini nicholas indic ated. Not Available [facility] ([facility]) [address] [facility], [place], [address], 10/30/2024 08:11:43 10/29/19 25 10/30/2024 VITAM IN D, 25-HY DROXY vitamin D, 25-hydroxy 30.9 NG/mL 30.0-1 00.0 Vitam in D defic iency has been defin ed by the Insti tute of Medic ine and an Endoc rine Socie ty pract ice guide line as a level of serum 25-OH vitam in D less than 20 ng/mL (1,2) . The Endoc rine Socie ty went on to furth er defin e vitam in D insuf ficie ncy as a level betwe en 21 and 29 ng/mL (2). 1. IOM (Inst itute of Medic ine). 2010. Dieta ry refer ence gena es for calci um and D. Nicolas wells [place]: [facility] Press . 2. Radha andrew MF, Tamar parker [place], Bob off-F errar i DOSS, et al. Evalu ation , treat ment, and preve ntion of vitam in D defic iency : an Endoc rine Socie ty clini marly pract ice guide line. JCEM. 2010; 96(7) :1911 -30. Not Available [facility] ([facility]) [address] [facility], [place], [address], 10/30/2024 08:11:43 10/29/19 25 10/30/2024 TSH RFX ON ABNOR MAL TO FREE T4 TSH 1.820 uIU/m L 0.450- 4.500 normal Not Available [facility] ([facility]) [address] [facility], [place], [address], 10/30/2024 08:11:44 04/01/20 24 04/01/2024 XR, foot, 3 or more view No observ ation record ed. [address], [place], [address], 04/02/2024 14:30:06 04/01/20 24 04/01/2024 XR, foot, 3 or more view No observ ation record ed. [address], [place], [address], 04/02/2024 14:29:42 03/10/20 25 04/28/2017 colon oscop y proce dure (PROC ) No observ ation record ed. Not Available 03/10 15:49:22 Result Notes None recorded. Problems Name Problem SNOMED Code Status Onset Date Resolution Date Notes Provider Name and Address Organization Details Recorded Time Mixed hyperlip idemia [id number] Completed 201609/02/2017 Problem Code: E78.2; Problem Code Type: ICD-10; Cherrie Leyva, PRIMER INSPECTOR [address] [place], [address] , [facility] [employer] 5 10:43:49 Hyperten sive disorder 88222488 Completed 201609/23/2018 Problem Code: I10; Problem Code Type: ICD-10; Not Available [facility] 2 21:27:11 Benign essentia l hyperten rick 6205470 Completed 201604/27/2018 Problem Code: 401.1; Problem Code Type: ICD-9; Not Available [facility] 2 21:27:14 Otitis externa of bilatera l ears [id number] 50986 Completed 201706/26/2018 Problem Code: H60.333; Problem Code Type: ICD-10; Not Available [facility] 21:27:11 Acute swimmer' s ear Completed 201706/26/2018 Problem Code: 380.12; Problem Code Type: ICD-9; Not Available [facility] 2 21:27:14 Lesion of oral mucosa [id number] 93015 Completed 201711/22/2018 Problem Code: K13.70; Problem Code Type: ICD-10; Not Available [facility] 2 21:27:11 Body mass index 25-29 - overweig ht 461924557 Completed 201704/16/2020 Problem Code: Z68.28; Problem Code Type: ICD-10; Cherrie Leyva APRN [address] [place] [address], [address] [facility] [employer] [employer] 5 14:10:09 Disorder of oral soft tissues 68668621 Completed 201711/22/2018 Problem Code: 528.9; Problem Code Type: ICD-9; Not Available [facility] 21:27:14 Influenz a vaccine needed 01986582000 Completed 201810/25/2022 Problem Code: Z23; Problem Code Type: ICD-10; JACQUELINE lopez, [facility] [employer] 3 08:19:57 Impacted cerumen in right ear [id number] 42384 Completed 201810/25/2022 Problem Code: H61.21; Problem Code Type: ICD-10; JACQUELINE ABDI null, [employer] 3 08:19:57 Otalgia of right ear 3604397254 Completed 201810/25/2022 JACQUELINE ABDI null, [facility] [employer] 3 08:19:57 Posterio r rhinorrh ea 37397978 Completed 201810/25/2022 Problem Code: R09.82; Problem Code Type: ICD-10; JACQUELINE lopez, [facility] [employer] 3 08:19:57 Influenz a vaccine needed [id number] 06 Completed 201804/16/2020 Problem Code: Z23; Problem Code Type: ICD-10; JACQUELINE lopez, [employer] 3 08:19:57 Puncture wound of foot 87888503 Completed 201904/16/2020 Problem Code: S91.331A ; Problem Code Type: ICD-10; Not Available [facility] 2 21:27:12 General examinat ion of patient Completed 201910/25/2022 JACQUELINE lopez, [facility] [employer] 3 08:19:57 Body mass index 20-24 - normal 088670186 Active 2019 Not Available [facility] 2 21:27:13 Osteopor osis 95612997 Active 2020 Problem Code: M81.0; Problem Code Type: ICD-10; Not Available [facility] 2 21:27:11 Body mass index 25-29 - overweig ht 371801211 Active 2020 Problem Code: Z68.25; Problem Code Type: ICD-10; Cherrie Leyva, PRIMER INSPECTOR [address] [place] [address], [address] [facility] [employer] 5 14:10:09 Otitis externa of right ear 69758951309 34461 Completed 202010/25/2022 Problem Code: H60.331; Problem Code Type: ICD-10; JACQUELINE lopez, [facility] [employer] 3 08:19:57 Hypoglyc emia 855295571 Completed 202005/06/2022 Problem Code: E16.2; Problem Code Type: ICD-10; Not Available [facility] 2 21:27:10 Finding of general energy 798468506 Completed 202010/25/2022 Problem Code: R53.83; Problem Code Type: ICD-10; JACQUELINE lopez, [facility] [employer] 3 08:19:57 Body mass index 25-29 - overweig ht 065544886 Completed 202005/06/2022 Problem Code: Z68.26; Problem Code Type: ICD-10; Cherrie Leyva APRN [address] [place] [address], [address] , [employer] 5 14:10:09 Screenin g for malignan t neoplasm of colon Completed 202110/25/2022 JACQUELINE ABDI null, [employer] 3 08:19:57 Vitamin D deficien cy 43602108 Active 2023 Sissy Szymanski NP [address], [place], [address] [place] [address] , [employer] 4 10:32:55 Essentia l hyperten rick 81795045 Active 2024 Cherrie Leyva APRN [address] [place] [address], [address] , [employer] 5 10:43:43 Mixed hyperlip idemia 645314291 Active 2024 Problem Code: E78.2; Problem Code Type: ICD-10; Cherrie Leyva APRN [address] [place] [address], [address] , [employer] 5 10:43:49 Chronic cough 37565067 Active 2024 Cherrie Leyva APRN [address] [place] [address], [address] , [employer] 5 13:54:49 Postmeno pausal osteopor osis 262213529 Active 2024 Cherrie Leyva APRN [address] [place] [address], [address] , [employer] 5 14:09:23 Problem Notes None recorded. Procedures Surgical History Date Name Laterality Status Provider Name and Address Organization Details Recorded Time 02/18/20 procedure on femur completed [employer] 04/25/2023 09:12:24 Bilateral Mastectomy completed [employer]. 10/25/2022 08:22:51 Nipple/areola reconstruction completed [employer]. 10/25/2022 08:23:13 Imaging Results None recorded. Procedure Notes None recorded. Medical Equipment None Reported. Allergies No known drug allergies Medications Name Sig Start Date Stop Date Status Note LastModified by Organization Details LastModified Time promethazin e-DM 6.25 mg-15 mg/5 mL oral syrup Take 5 mL every 4 hours by oral route as needed, for cough. 10/29 completed Not Available Not Available Not Available clindamycin HCl 300 mg capsule 04/25 completed Not Available Not Available Not Available azithromyci n 250 mg tablet TAKE 2 TABLETS (500 MG) BY ORAL ROUTE ONCE DAILY FOR 1 DAY THEN 1 TABLET (250 MG) BY ORAL ROUTE ONCE DAILY FOR 4 DAYS 10/29 completed Not Available Not Available Not Available cetirizine 5 mg tablet TAKE ONE TABLET BY MOUTH EVERY DAY NEEDED for allergies active Not Available Not Available No t Available meloxicam 15 mg tablet TAKE 1 TABLET EVERY DAY NEEDED 2024 active Not Available Not Available Not Avai lable tramadol 50 mg tablet 10/28 completed Not Available Not Available Not Available cephalexin 500 mg capsule Take 1 capsule every 6 hours by oral route for 10 days. 10/28 completed Not Available Not Available Not Available simvastatin 20 mg tablet Take 1 tablet every day by oral route at bedtime. active Not Available Not Available No t Available metoprolol succinate ER 25 mg tablet,exte nded release 24 hr TAKE 1 TABLET EVERY DAY 2024 active Not Available Not Available Not Avai lable Vitamin D2 1,250 mcg (50,000 unit) capsule Take 1 capsule every week by oral route, for vitamin D. 10/29 completed Not Available Not Available Not Available amoxicillin 500 mg-potassiu m clavulanate 125 mg tablet Take 1 tablet every 12 hours by oral route with meal(s) for 10 days. 09/22 completed Not Available Not Available Not Available oxycodone 5 mg tablet 04/25 completed Not Available Not Available Not Available Ciprodex 0.3 %-0.1 % ear drops,suspe nsion instill 4 drops into affected ear(s) by otic route 2 times per day for 7 days 10/09 completed Not Available Not Available Not Available cetirizine 10 mg chewable tablet chew 1 tablet (10 mg) by oral route once daily 02/24 completed Not Available Not Available Not Available nitrofurant oin monohydrate /macrocryst als 100 mg capsule Take 1 capsule every 12 hours by oral route with meal(s) for 10 days. 10/29 completed Not Available Not Available Not Available Boostrix Tdap 2.5 Lf unit-8 mcg-5 Lf/0.5 mL intramuscul ar syringe inject 0.5 millilite r by intramusc ular route once 02/10 completed Not Available Not Available Not Available hydrochloro thiazide 12.5 mg tablet TAKE 1 TABLET EVERY MORNING FOR BLOOD PRESSURE 2024 active Not Available Not Available Not Avai lable Havrix (PF) 1,440 LUKAS unit/mL intramuscul ar suspension Give 1 ML IM x 1 dose please. 05/02 completed Not Available Not Available Not Available GaviLyte-G 236 gram-22.74 gram-6.74 gram-5.86 gram oral solution 10/25 completed Not Available Not Available Not Available Prolia 60 mg/mL subcutaneou s syringe inject 1 millilite r (60 mg) by subcutane ous route every 6 months in the upper arm, upper thigh or abdomen 10/28 completed Not Available Not Available Not Available Ciclodan 8 % topical solution apply to the affected area(s) by topical route once daily preferabl y at bedtime or 8 hours before washing 10/25 completed Not Available Not Available Not Available Bin[employer] COVID-19 Ag Self Test kit TEST DIRECTED TODAY 10/25 completed Not Available Not Available Not Available Paxlovid 300 mg (150 mg x 2)-100 mg tablets in a dose pack TK 2 NIRMATREL VIR TS AND 1 RITONAVIR T TOGETHER PO BID FOR 5 DAYS BID FOR 5 DAYS 10/25 completed Not Available Not Available Not Available Vitals Date Recorded Body height Body mass index (BMI) Body weight Body temperature Heart rate Oxygen saturation Oxygen saturation in Arterial blood by Pulse oximetry Systolic And Diastolic Provider Name and Address Organization Details Last Updated DateTime 5 162.56 cm 27.9 kg/m2 90656.1 2 g 98 [degF] 61 /min 98 % 98 % 128/80 mm[Hg] [employer] 5 10:41:36 Date Recorded Body height Body mass index (BMI) Body weight Body temperature Heart rate Oxygen saturation Oxygen saturation in Arterial blood by Pulse oximetry Systolic And Diastolic Provider Name and Address Organization Details Last Updated DateTime 4 162.56 cm 27.3 kg/m2 58566.1 9 g 98 [degF] 64 /min 97 % 97 % 122/64 mm[Hg] [employer] 4 13:47:54 Date Recorded Body height Body mass index (BMI) Body weight Body temperature Heart rate Oxygen saturation Oxygen saturation in Arterial blood by Pulse oximetry Systolic And Diastolic Provider Name and Address Organization Details Last Updated DateTime 5 162.56 cm 27.2 kg/m2 60836.3 1 g 98 [degF] 57 /min 95 % 95 % 120/69 mm[Hg] [employer] 5 13:10:43 Date Recorded Body height Body mass index (BMI) Body weight Body temperature Heart rate Oxygen saturation Oxygen saturation in Arterial blood by Pulse oximetry Systolic And Diastolic Systolic And Diastolic Provider Name and Address Organization Details Last Updated DateTime 4 162.56 cm 26.9 kg/m2 17564.2 8 g 96.2 [degF] 60 /min 94 % 94 % 152/87 mm[Hg] 139/81 mm[Hg] Valentina Parson [employer] 4 10:14:52 Date Recorded Body height Body mass index (BMI) Body weight Body temperature Heart rate Oxygen saturation Oxygen saturation in Arterial blood by Pulse oximetry Systolic And Diastolic Systolic And Diastolic Systolic And Diastolic Provider Name and Address Organization Details Last Updated DateTime 4 162.56 cm 27.8 kg/m2 44273.9 6 g 97.8 [degF] 68 /min 94 % 94 % 147/78 mm[Hg] 150/82 mm[Hg] 150/80 mm[Hg] JACQUELINE ABDI [facility] [employer] 4 15:32:27 Social History Question Answer Notes LastModified by Organizat ion Details LastModified Time Tobacco Smoking Status Never Smoker SocialHis toryQuest ion: 'Tobacco/ Alcohol/S upplement s'; SocialHis toryRespo nse: 'Never Smoker'; Not Available [facility] 06/25/2022 22:56:40 Do You Have An Advance Directive? No Information not available 10/25/2022 Is Your Home Air Conditioned? Yes Information not available 10/25/2022 Are You Blind Or Do You Have Difficulty Seeing? No Information not available 10/25/2022 In The 14 Days Before Symptom Onset, Have You Had Close Contact With A Laboratory-confir med COVID-19 While That Case Was Ill? No Information not available 10/25/2022 In The 14 Days Before Symptom Onset, Have You Had Close Contact With A Person Who Is Under Investigation For COVID-19 While That Person Was Ill? No Information not available 10/25/2022 Have You Been To An Area Known To Be High Risk For COVID-19? No Information not available 10/25/2022 Are You Deaf Or Do You Have Serious Difficulty Hearing? No Information not available 10/25/2022 What Type Of Diet Are You Following? REGULAR Information not available 10/25/2022 Have There Been Any Changes To Your Family Or Social Situation? No Information no t available 10/25/2022 Are There Any Guns Present In Your Home? No Information not available 10/25/2022 Do You Have A Medical Power Of Opto Mechanical Engineer? No Information not available 10/25/2022 What Was The Date Of Your Most Recent Tobacco Screening? 05/02/2025 Information not available 05/02/2025 What Is Your Relationship Status? Information not available 10/25/2022 Do You Use Your Seat Belt Or Car Seat Routinely? Yes Information not available 10/25/2022 Do You Have Smoke And Carbon Monoxide Detectors In Your Home? Yes Information not available 10/25/2022 Are You Passively Exposed To Smoke? No Information no t available 10/25/2022 Are There Any Smokers In Your House? No Information not available 10/25/2022 Do You Use Sunscreen Routinely? No Information not available 10/25/2022 Has Tobacco Cessation Counseling Been Provided? No Information not available 10/25/2022 Have You Recently Traveled Abroad? No Information not available 10/25/2022 Do You Have Difficulty Walking Or Climbing Stairs? No Information not available 10/25/2022 Are You Currently In School? No Information not available 10/25/2022 Sex: Female Functional Status Question Answer Note LastModified by Organizat ion Details LastModified Time Do you use any illicit or recreational drugs? No Information not available 10/25/2022 Do you or have you ever used any other forms of tobacco or nicotine? No Information not available 10/25/2022 What is your level of alcohol consumption? None Information not available 10/25/2022 Are you currently employed? No Information not available 10/25/2022 Do you have transportation difficulties? No Information not available 10/25/2022 Do you have difficulty doing errands alone? No Information not available 10/25/2022 Are you able to care for yourself? Yes Information not available 10/25/2022 Do you have difficulty dressing or bathing? No Information not available 10/25/2022 Mental Status Question Answer Note LastModified by Organization D etails LastModified Time Do you have difficulty concentrating, remembering or making decisions? No Information no t available 10/25/2022 Family History Relationship Description Onset Age of this Age Resolved Age Notes LastModified by Organization Details LastModified Time Mother Family history of breast cancer Relati ve: ''; marilin Not available 10/25/2022 08:20:31 Notes:*Procedure Description : Documented family medical history in mother*Relative: Mother *Procedure Description: Documented family medical history in father*Relative: Father *Procedure Description: Family medical history unremarkable*Relative: Unspecified Relation *Problem: Relative: ''; Medical History Condition Response Coronary Artery Disease N Other N Gout N Kidney Stones N Blood Diseases N Hyperthyroidism N Breast Cancer N Blood Transfusion N Emergency room visit since last appointm ent. N Hypothyroidism N Lung Disease N Dermatologic Disorders N Depression N COPD N Developmental or Behavioral Disorders N Defects or Inherited Disease N Breast Problem N Difficulty Swallowing N Anesthesia Complications N History of STI N Anxiety Disorder N Meniere's disease N Autoimmune disease N Muscle, Joint, or Bone Problems N Vision or Eye Problems N Arthritis N Infertility N Polyps N Mental Disorder N Congenital Anomalies N Acid Reflux (GERD) N Cancer Y Stroke N Neurologic/Epilepsy N Endometriosis N Bladder or Kidney Problems N High Cholesterol N Liver Disease N Organ Transplant N Psychiatric/Mental Health Condition N Fibromyalgia N Headaches N Schizophrenia N Dialysis N Kidney Disease N Allergies/Hayfever N Heart Problems N Ear or Hearing Problems N Hospitalizations N Learning Disorder N Artificial Joints N Thyroid Problems N GI Problems N Acne N ADD/ADHD N Eating Disorder N Anemia N Constipation N Mental Illness N Ovarian Cancer N Diabetes N Bedwetting N Hepatitis/Liver Disease N Tuberculosis N Eczema N Diverticulitis N Abuse/Domestic Violence N Asthma N Trauma/Violence N Substance Abuse N Reflux/GERD N Depression/ depression N Hepatitis N Heart Disease N Pulmonary Embolism N Tourette Syndrome N Pre-Eclampsia N Hypertension N Chronic Ear Infections N Osteoporosis Y Chicken Pox N Autism Spectrum Disorder (ASD) N Thrombophilias N Gynecological History Statement/Question Response Date of Last Pap Smear Most Recent Mammogram Obstetrics History GPAL:G 0 P 0 0 0 0 Immunizations Vaccine Type Date Status Note Provider Nam e and Address Organization Details Recorded Time RSV, recombinant, protein subunit RSVpreF, adjuvant reconstituted, 0.5 mL, PF 4 completed Cherrie Leyva, PRIMER INSPECTOR [address] [place], [address], [facility] [employer] 11/09/2023 14:53:06 Influenza, adjuvanted, quadrivalent, PF 1 completed JACQUELINE MYNEAR null, [employer] 10/25/2022 08:18:16 COVID-19, mRNA, LNP-S, PF, 100 mcg/0.5mL dose or 50 mcg/0.25mL dose 2 completed JACQUELINE MYNEAR null, [employer] 10/25/2022 08:18:16 Tdap 0 completed JACQUELINE MYNEAR null, [employer] 10/25/2022 08:18:16 COVID-19, mRNA, LNP-S, PF, 100 mcg/0.5mL dose or 50 mcg/0.25mL dose 1 completed JACQUELINE MYNEAR null, [employer] 10/25/2022 08:18:16 COVID-19, mRNA, LNP-S, PF, 100 mcg/0.5mL dose or 50 mcg/0.25mL dose 1 completed JACQUELINE MYNEAR null, [employer] 10/25/2022 08:18:16 Hep A, adult 9 completed JACQUELINE MYNEAR null, [employer] 10/25/2022 08:18:16 Hep A, adult 8 completed JACQUELINE MYNEAR null, [employer] 10/25/2022 08:18:16 Influenza, MDCK, quadrivalent, preservative 9 completed JACQUELINE MYNEAR null, [employer] 10/25/2022 08:18:16 pneumococcal polysaccharide PPV23 8 completed JACQUELINE MYNEAR null, [employer] 10/25/2022 08:18:16 COVID-19, mRNA, LNP-S, PF, 100 mcg/0.5mL dose or 50 mcg/0.25mL dose 1 completed JACQUELINE MYNEAR null, [employer] 10/25/2022 08:18:16 zoster recombinant 5 completed Cherrie Leyva APRN [address] [place], [address], [employer] 10/31/2024 17:52:36 COVID-19, mRNA, LNP-S, bivalent, PF, 50 mcg/0.5 mL or 25mcg/0.25 mL dose 2 completed JACQUELINE MYNEAR null, [employer] 10/25/2022 08:18:16 Influenza, high-dose, quadrivalent, PF 0 completed JACQUELINE MYNEAR null, [employer] 10/25/2022 08:18:16 Influenza, high-dose, trivalent, PF 8 completed JACQUELINE MYNEAR null, [employer] 10/25/2022 08:18:16 Td (adult), 2 Lf tetanus toxoid, preservative free, adsorbed 7 completed JACQUELINE MYNEAR null, [employer] 10/25/2022 08:18:16 Influenza, split virus, quadrivalent, PF 2 completed JACQUELINE MYNEAR null, [employer] 10/25/2022 08:18:16 zoster recombinant 5 completed JACQUELINE MYNEAR null, [employer] 05/02/2025 13:48:08 Influenza, adjuvanted, quadrivalent, PF 3 completed Valentina Eb null, [employer] 05/12/2024 10:12:52 COVID-19, mRNA, LNP-S, PF, kecia-sucrose, 30 mcg/0.3 mL 3 completed Valentina [place] null, [employer] 05/12/2024 10:12:52 Past Encounters Encounter ID Performer Location Encounter Start Date Encounter Closed Date Diagnosis/Indication Diagnosis SNOMED-CT Code Diagnosis ICD10 Code Diagnosis Note [id number] Cherrie Leyva APRN [address] [place] [address] 09/16/2022 15:09:06 09/16/2022 15:22:22 Osteoporosis 82367662 M81.0 [id number] [place] [id number] 10/25/2022 07:50:13 10/25/2022 09:17:23 Osteoporosis 82229800 M81.0 Continue Prolia and calcium with Vit D and weight bearing exercise. Essential hypertension 87200876 I10 Continue medication s. DASH diet. Mixed hyperlipidemia 267 122265 E78.2 Pain of ri ght hip joint 2805489633 14736 M25.551 RICE, x ray. [id number] [place] [id number] 01/21/2023 14:28:19 01/21/2023 15:34:35 Fall on same level from tripping 601371740 W01.0XXA Pain of ri ght hip joint [id number] 39508 M25.551 RICE, x ray. Voltaren gel sample given and inst on use, Tylenol and Mobic as directed. [id number] Cherrie Leyva [place] [id number] 04/25/2023 08:50:23 04/25/2023 10:03:23 Essential hypertension 06774679 I10 Continue medication s. DASH diet. Mixed hyperlipidemia 267 700740 E78.2 Prediabetes 980993176 R7 3.03 A1c was 6.3 on preop labs in January - work on lower carb diet. Osteoporosis 43187905 M8 1.0 Continue Prolia and calcium with Vit D and weight bearing exercise. [id number] Cherrie Leyva [place] [id number] 0 05/21/2023 16:30:38 05/21/2023 17:23:43 Pain of right hip joint [id number] 30410 M25.551 RICE, x ray. Tylenol and Mobic as directed. Acute righ t otitis media 417205125 H66.91 Start zyrtec and flonase OTC daily, complete the entire antx course. [id number] Cherrie Leyva [place] [address] 0 10/28/2023 08:27:10 10/28/2023 10:13:17 Essential hypertension 84450519 I10 Continue medication s. DASH diet. Mixed hyperlipidemia 267 524356 E78.2 Continue statin. Fatigue 96039851 R53.83 Osteoporosis 85775437 M8 1.0 Continue calium w/ D and weight bearing exercise. Hyperglycemia 24917757 R 73.9 Prediabeti c. Active or passive immunization 888322580 Z23 Body mass index 25-29 - overweight 539622884 Z68.27 [id number] Cherrie Leyva [place] [address] 0 03/03/2024 13:00:42 03/03/2024 13:58:18 Pain of left shoulder joint [id number] 3656469 M25.512 RICE, obtain MRI. Suspect biceps tendonitis versus tear. Has failed NSAIDS. Bunion 474978328 M21.61 9 Would like surgical consult with Dr Rangel regarding her bunions. [id number] Cherrie Leyva [place] [address] 0 04/28/2024 13:31:36 04/28/2024 14:32:17 Adult health examination 115140295 Z00.00 Adhesive c apsulitis of left shoulder 0020757234 50160 M75.02 Continue PT Allergic rhinitis 952911 04 J30.9 Vitamin D deficiency 347 95548 E55.9 Essential hypertension 14870371 I10 Continue medication s. DASH diet. Body mass index 25-29 - overweight 509152014 Z68.27 [id number] Sissy Szymanski, RAJESH [place] [id number] 0 05/12/2024 09:58:06 05/12/2024 10:45:11 Vaginal discharge 570767210 N89.8 Postmenopa usal bleeding 98793294 N95.0 [id number] Cherrie Leyva [place] [address] 0 09/22/2024 15:05:23 09/22/2024 17:02:54 Persistent cough 134271988 R05.3 Acute bronchitis 7661881 2 J20.9 Cough The patient presents wet cough. The patient's condition is worsening. Based on the findings today we will begin medication therapy. Reviewed symptomati c care instructio ns, the expected course of these illnesses and explained that coughing can persist for some time. Provided precaution s for signs of worsening disease and instructio ns on contacting us if symptoms worsen. [id number] Cherrie Leyva [place] [address] 0 10/29/2024 10:22:51 10/29/2024 11:35:19 Essential hypertension 31459026 I10 Continue medication s. DASH diet and weight bearing exercse. Mixed hyperlipidemia 267 365623 E78.2 Continue statin. Vitamin D deficiency 347 17382 E55.9 Body mass index 25-29 - overweight 751920974 Z68.27 Active or passive immunization 341488622 Z23 Chronic cough 16832496 R 05.3 Osteoporosis 77462040 M8 1.0 Continue calium w/ D and weight bearing exercise. [id number] Cherrie Leyva [place] [address] 0 05/02/2025 12:52:11 05/02/2025 13:44:22 Active or passive immunization 157661788 Z23 Preventive procedure 169 464637 Z00.00 Patient presented to office today for their Medicare Annual Wellness Visit. Education was provided on healthy nutrition, including a diet rich in fruits and vegetables , minimizing simple carbohydra braydon, salt, and saturated fats. Encouraged regular cardiovasc ular exercise such as walking at least 30 minutes daily, 5 times per week. Emphasized preventive health measures and educated pt on fall prevention and community- based lifestyle interventi ons to help reduce health risks and promote healthy living. History of hip fracture 859436125 Z87.[address] Florez for second opinion. Essential hypertension 52613348 I10 Continue medication s. DASH diet and weight bearing exercise. Chronic cough 06074774 R 05.3 Mixed hyperlipidemia 267 822805 E78.2 She refuses statin. D/w her [place] Red w/ Co Q 10 daily. Her HDL cholestero l was 70. She has minimal risk factors. Postmenopa usal osteoporosis 044745975 M81.0 Continue calium w/ D and weight bearing exercise. She developed femur stress fracture whileon Prolia without trauma. Body mass index 25-29 - overweight 940352984 E66.3 Statin declined 49188364 0 Z53.20 Health Concerns Section Related Observation LastModified by Organization Detai ls LastModified Time None Recorded Concern Status LastModified by Organization Details LastModified Time None Recorded Advance Directives Directive N: Payers Insurance Date Sequence Insurance Name Policy Number Policy Myers Covered Member ID Myers Member ID Guarantor Name 04/29/2025 [place] NATACHA Yapp [facility] Estela Maharaj [id number] Estela Maharaj 04/29/2025 1 [employer] (MEDICARE REPLACEMENT/AD VANTAGE - PPO) Estela Maharaj [id number] Estela Maharaj Notes Date Note Type Note Provider Name and Address Organization Details Recorded Time 04/28/20 24 text/ht ml Annual WellnessReported bypatient.Diet and Nutrition:healthy diet; discussed vitamin and supplement use; discussed portion control; discussed maintaining calcium balance Fracture Risk:history of fractures Physical Activity:exercises on a regular basis; discussed weightbearing activities Additional Lifestyle Factors:no tobacco use; no alcohol intake Depression Risk:never feels sad, empty, or tearful; no loss of interest in activities; no significant changes in weight; no sleep disturbances or insomnia; no agitation; no loss of energy; no feelings of worthlessness or guilt; no thoughts of suicide; no history of depression; no history of mood disorders Hearing:no loss of hearing Vision:no vision problemsHyperlipidemiaReported bypatient.Control:usually well controlled; improving; at goal Adherence to Treatment Plan:follows recommended diet; exercises; takes medications as prescribed Complications:no coronary artery disease; no peripheral artery disease; no cardiovascular diseaseHypertension F/UReported bypatient.Medications:taking medications as directed; no side effects from medication; checks blood pressure at home, range: (120/70) Lifestyle:regular exercise; limits sodium intake Associated Symptoms:no dizziness; no lightheadedness; no chest pain; no shortness of breath; no palpitations; no edema; no calf pain with exertion; no headacheOsteoporosisReported bypatient.Height:loss of 1inches Duration:post menopausal Fracture History:hip fracture date 2022 Kidney stones:no family history of kidney stones ETOH:no alcohol use Smokingnon-smoker Habitsactive lifestyle Bone pain:no bone pain Reported Medicationsno history of greater than 5 mg po qd prednisone for over 3 mo. duration; takes calcium supplements: yes; takes vitamin D supplement: yes Home risks:good lighting in home; no stairs;rugs in home; small animals Help available:family Emergency plan for fall:plan in place WHO CriteriaosteoporosisNotes:Stopped prolia due to stress fracture at femur last year. Prediabetic. Continues to see Ortho and PT for adhesive capsulitis of left shoulder - possibly due to previous covid vaccination. Cherrie Leyva APRN [address] [place], [address], [facility] [employer]. 05/16/2024 21:12:26 05/12/20 24 text/ht ml Patient presents for UTI symptoms. States on Friday she noticed some dark brown discharge and increased urination. Since then she has noticed some spotting and some brown discharge when she wipes. She has been wearing a panty liner. No bright red bleeding, not increasing in amount or frequency, but continues to have discharge. Early 40's went through menopause, no vaginal bleeding since that time.Denies abdominal pain. Denies dysuria. Denies itching or vaginal pain. Denies constipation or diarrhea. Denies hemorrhoids. Sissy Szymanski NP [address] [place], [address], [facility], [employer]. 05/12/2024 10:38:14 09/22/20 24 text/ht ml Upper Respiratory SymptomsReported bypatient.Location:head; chest; throat; nasal; ears Quality:productive cough;congested;hurts to swallow;nasal discharge; earache bilaterally Duration:symptoms lasting less than 2 weeks Onset/Timing:gradual; date of onset: (5 days ago) Context:no sick contacts; no foreign travel; non-smoker;allergies Alleviating Factors:analgesics; antihistamines Associated Symptoms:no chest pain; no shortness of breath; no cyanosis;yellow sputum;wheezing;fatigue;fever;sor e throat;headache;chills;malaise Cherrie Leyva APRN [address] [place], [address], [facility] [employer]. 09/22/2024 17:13:23 10/29/19 25 text/ht ml Annual WellnessReported bypatient.Diet and Nutrition:healthy diet; discussed vitamin and supplement use; discussed portion control; discussed maintaining calcium balance Fracture Risk:history of fractures Physical Activity:exercises on a regular basis; discussed weightbearing activities Additional Lifestyle Factors:no tobacco use; no alcohol intake Depression Risk:never feels sad, empty, or tearful; no loss of interest in activities; no significant changes in weight; no sleep disturbances or insomnia; no agitation; no loss of energy; no feelings of worthlessness or guilt; no thoughts of suicide; no history of depression; no history of mood disorders Hearing:no loss of hearing Vision:no vision problemsHyperlipidemiaReported bypatient.Control:usually well controlled; improving; at goal Adherence to Treatment Plan:follows recommended diet; exercises; takes medications as prescribed Complications:no coronary artery disease; no peripheral artery disease; no cardiovascular diseaseHypertension F/UReported bypatient.Medications:taking medications as directed; no side effects from medication; checks blood pressure at home, range: (120/70) Lifestyle:regular exercise; limits sodium intake Associated Symptoms:no dizziness; no lightheadedness; no chest pain; no shortness of breath; no palpitations; no edema; no calf pain with exertion; no headacheOsteoporosisReported bypatient.Height:loss of 1inches Duration:post menopausal Fracture History:hip fracture date 2022 Kidney stones:no family history of kidney stones ETOH:no alcohol use Smokingnon-smoker Habitsactive lifestyle Bone pain:no bone pain Reported Medicationsno history of greater than 5 mg po qd prednisone for over 3 mo. duration; takes calcium supplements: yes; takes vitamin D supplement: yes Home risks:good lighting in home; no stairs;rugs in home; small animals Help available:family Emergency plan for fall:plan in place WHO CriteriaosteoporosisNotes:Stopped prolia due possible prolia related to stress fracture at femur last year. She is taking calcium with D. Discussed repeating DEXA and considering another med therapy and she declines for now. Prediabetic. Cherrie Leyva, PRIMER INSPECTOR [address] [place], [address], [facility]. 10/31/2024 17:55:47 05/02/20 25 text/ht ml Annual WellnessReported bypatient.Diet and Nutrition:healthy diet; discussed vitamin and supplement use; discussed portion control; discussed maintaining calcium balance Fracture Risk:history of fractures Physical Activity:exercises on a regular basis; discussed weightbearing activities Additional Lifestyle Factors:no tobacco use; no alcohol intake Depression Risk:never feels sad, empty, or tearful; no loss of interest in activities; no significant changes in weight; no sleep disturbances or insomnia; no agitation; no loss of energy; no feelings of worthlessness or guilt; no thoughts of suicide; no history of depression; no history of mood disorders Hearing:no loss of hearing Vision:no vision problemsHip(s)Reported bypatient.Location:right; lateral; deep Quality:aching Severity:worsening; moderate Timing:gradual Duration:chronic; 2 years Context:atraumatic Aggravating Factors:going from sit to stand; upstairs Alleviating Factors:sitting; ice; rest Associated Symptoms:no weakness; no numbness; no tingling; no swelling; no redness; no warmth; no ecchymosis;catching/locking;poppi ng/clicking;instability;radiation down leg Previous Surgery:surgical procedure: (ORIF right femur); date: (2022) Prior Imaging:x ray; MRI Previous Injections:none Previous PT:did not help Working:modified duty Work Related:noHyperlipidemiaReported bypatient.Duration:chronic Prior Tests:highest LDL-C level: 196 date: Control:usually poorly controlled Adherence to Treatment Plan:follows recommended diet; exercises;does not take medications as prescribed Complications:no coronary artery disease; no peripheral artery disease; no cardiovascular disease Risk Factors:hypertensionHypertension F/UReported bypatient.Medications:taking medications as directed; no side effects from medication; checks blood pressure at home, range: (120/70) Lifestyle:regular exercise; limits sodium intake Associated Symptoms:no dizziness; no lightheadedness; no chest pain; no shortness of breath; no palpitations; no edema; no calf pain with exertion; no headacheOsteoporosisReported bypatient.Height:loss of 1inches Duration:post menopausal Fracture History:hip fracture date 2022 Kidney stones:no family history of kidney stones ETOH:no alcohol use Smokingnon-smoker Habitsactive lifestyle Bone pain:no bone pain Reported Medicationsno history of greater than 5 mg po qd prednisone for over 3 mo. duration; takes calcium supplements: yes; takes vitamin D supplement: yes Home risks:good lighting in home; no stairs;rugs in home; small animals Help available:family Emergency plan for fall:plan in place WHO CriteriaosteoporosisNotes:Stopped prolia due to stress fracture of right femur last year. Pt with Osteoporosis who was on Prolia who developed a stress fracture of right femur in 2022 after she leaned over a piece of furniture. She underwent ORIF left femur with Dr Lissette Patton at [facility]. She has since had persistent pain and instability of the hip which is worse when climbing stairs. She completed PT post op. 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 She would like a second opinion which is certainly reasonable. Cherrie Leyva, PRIMER INSPECTOR [address] [facility] [place], [address], [facility] [employer] 05/02/2025 14:13:05 OBGyn Episode No OBEpisode recorded.
--- OUTSIDE RECORDS SUMMARY | 2025-05-08 19:00 | XMS_ITS | Data Portability ---
Author Organization [facility] Address [address] [place] [address] Care Team Providers Care Management Engineer Name Role Phone [email or web address] Primary Care Provider Assessment No assessment recorded. Plan of Treatment Reminders Order Date Submit Date Provider Last Modified By Organization Details Last Modified Time Details Appointments FOLLOW UP DAK 2025 03:00P M JOÃO PERAZA MD Not available Not available Not available Lab None recorded . Referral None recorded . Procedures None recorded . Surgeries None recorded . Imaging None recorded . Medication Orders None recorded . Patient TargetsNo targets recorded. Patient InstructionsNo instructions recorded. Reason for Referral None Reported. Medical Equipment None Reported. Allergies No known drug allergies Medications Name Sig Start Date Stop Date Status Note LastModified by Organization Details LastModified Time Fosamax 70 mg tablet 01/18 completed Duration: 30 days;Medi cation Descripti on: alendrona te; Dosage:1; Route:ora l; refills:0 ; Quantity: 4 tablet Not Available Not Available Not Available calcium 200 mg (as calcium citrate 950 mg) tablet Two times a day 01/18 completed Duration: 10 days;Freq uency: bid;Medic ation Descripti on: calcium citrate; Route:ora l; refills:0 ; Quantity: 60 tablet Not Available Not Available Not Available meloxicam active Not Available Not Leida ilable Not Available vitamin E 01/18 completed Medicatio n Descripti on: vitamin E; Route:ora l; refills:0 Not Available Not Available Not Available hydrochlor othiazide active Not Available Not Available No t Available metoprolol succinate active Not Available Not Available No t Available Vitals None Recorded Social History None recorded. Functional Status None recorded. Mental Status None recorded. Family History Nothing Reported. Medical History No medical history recorded. Gynecological HistoryNo gynecological history recorded. Obstetrics History GPAL:G 0 P 0 0 0 0 Past Encounters Encounter ID Performer Location Encounter Start Date Encounter Closed Date Diagnosis/Indication Diagnosis SNOMED-CT Code Diagnosis ICD10 Code Diagnosis Note [id number] JOÃO PERAZA MD [place] [address] [place] [address] 01/18/2025 13:03:29 01/18/2025 13:37:44 Multiple benign melanocytic nevi 032875254 D22.5 - Benign lesions seen on exam today- SPF 30 or higher broad-spec trum sunscreen recommende d with re-applica tion every 2 hours- Discussed sun protection measures, including wide-brimm ed hat, sun-protec tive clothing, and avoidance of sun during peak hours of 10am-4pm- Instructed to monitor for changes and to call us for appointmen t with any changing or worrisome lesions Seborrheic keratosis 394 730306 L82.1 - Benign overgrowth s of skin - Hereditary Senile angioma 1403528 I 78.1 - Benign blood vessel growths - Hereditary Solar lentigo 94533633 L 81.4 - Benign brown spots - Sun-induce d Health Concerns Section Related Observation LastModified by Organization Detai ls LastModified Time None Recorded Concern Status LastModified by Organization Details LastModified Time None Recorded Advance Directives Directive None Recorded Payers Insurance Date Sequence Insurance Name Policy Number Policy Myers Covered Member ID Myers Member ID Guarantor Name 01/19/2025 1 [employer] (MEDICARE REPLACEMENT/A DVANTAGE - PPO) Estela Maharaj [id number] Estela Maharaj Notes Date Note Type Note Provider Name and Address Organization Details Recorded Time 01/18/2025 text/html I have some tags on my neck.I have some small red dots on my abdomen, not sure if they are from my statins. I stopped taking themFSE, last 11/2022Negative personal hx JOÃO PERAZA MD [address] [place], [address], [place] [facility] 01/18/2025 13:59:23 OBGyn Episode No OBEpisode recorded.
--- OUTSIDE RECORDS SUMMARY | 2025-05-08 19:00 | XMS_ITS | Clinical Summary ---
Author Organization [facility] Address [address] [place] [address] Care Team Providers Care Credit Operations Processor Name Role Phone Provider, No Known Primary Care Provider Unavail able Allergies No known active allergies Medications metoprolol succinate XL (TOPROL-XL) 100 MG 24 hr tablet Take 100 mg by mouth Daily. Active simvastatin (ZOCOR) 10 MG tablet Take 10 mg by mouth Every Night. Active meloxicam (MOBIC) 15 MG tablet Take 15 mg by mouth Daily. Active Immunizations Immunization Administration Dates Next Due Fluzone High-Dose 65+YRS 07/06/2018 Social History Tobacco Use Types Packs/Day Years Used Date Smoking Tobacco: Never Assessed Abuse Screen Answer Date Recorded Unsafe at Home or Work/School Not on file Feels Threatened by Someone? Not on file 09/2023 Does Anyone Keep You from Co ntacting Others or Doint Things Outside the Home? Not on file 07/31/2023 Physical Sign of Abuse Present Not on file 1 Housing Stability Answer Date Recorded Current Living Arrangements Not on file 07/20 Potentially Unsafe Housing Conditions Not on kee e 07/31/2023 Family and Community Support Answer Ulises e Recorded Help with Day-to-Day Activities Not on file 07/31/2023 Lonely or Isolated Not on file 07/31/2023 Employment Answer Date Recorded Do you want help finding or keeping work or a yaneth b? Not on file 07/31/2023 Disabilities Answer Date Recorded Concentrating, Remembering, or Making Decisions Difficulty Not on file 07/31/2023 Doing Errands Independently Difficulty Not on fi le 07/31/2023 Education Answer Date Recorded Help with school or training? Not on file Preferred Language Not on file 07/31/2023 Comments Unknown Sex and Gender Information Value Date Recorded Sex Assigned at Not on file Legal Sex Female 1:13 PM EDT Gender Identity Not on file Sexual Orientation Not on file Plan of Treatment Health Maintenance Due Date Last Done Comments DXA SCAN 1953 TDAP/TD VACCINES (1 - Tdap) 01/06/1972 MAMMOGRAM 1993 COLOGUARD 1998 COLON CANCER SCREENING 5 YEAR SIGMOIDOSCOPY 1998 COLONOSCOPY 1998 [address] CANCER SCREENING 1998 CT COLONOGRAPHY 1998 FECAL OCCULT BLOOD TEST 1998 FIT Testing (1 year) 1998 Pneumococcal Vaccine 50+ (1 of 1 - PCV) 2003 ZOSTER VACCINE (1 of 2) 2003 ANNUAL PHYSICAL 07/06/2018 HEPATITIS C SCREENING 07/06/2018 COVID-19 Vaccine ( - season) 2024 INFLUENZA VACCINE 07/20/2025 07/06/2018 Insurance [employer] MEDICARE ADVANTAGE COMMUNITY HMO - NON PAR on file Care Teams Credit Operations Processor Relationship Specialty Start Date End Date Provider, No Known [facility] [place] [address] PCP - General 07/06/18
--- OUTSIDE RECORDS SUMMARY | 2025-05-08 19:00 | XMS_ITS | Referral Summary ---
Author Organization [employer] ([place], [place], [place], [place]) Address [address] [place] [address] Care Team Providers Care Auction Assistant Name Role Phone Cherrie Leyva APRN Primary Care Provider [phone] Allergies No known active allergies Medications metoprolol succinate (TOPROL-XL) 25 MG 24 hr tablet Metoprolol Succinate ER 25 MG Oral Tablet Extended Release 24 Hour QTY: 90 Days: 90 Refills: 0 Written: 12/03/22 Patient Instructions: 12/03/19 23 Active hydroCHLOROth iazide (HYDRODIURIL) 12.5 MG tablet hydroCHLOROthiazide 12.5 MG Oral Tablet QTY: 90 Days: 90 Refills: 0 Written: 12/03/22 Patient Instructions: 09/17/20 22 Active meloxicam (MOBIC) 15 MG tablet Meloxicam 15 MG Oral Tablet QTY: 90 Days: 90 Refills: 0 Written: 12/03/22 Patient Instructions: 12/03/19 23 Active simvastatin (ZOCOR) 10 MG tablet Take 1 tablet (10 mg total) by mouth. Active Social History Tobacco Use Types Packs/Day Years Used Date Smoking Tobacco: Former Cigarettes Smokeless Tobacco: Never Tobacco Cessation:Counseling Given: Not Answered Alcohol Use Standard Drinks/Week Comments Never 0 (1 standard drink = 0.6 oz pur e alcohol) Food Insecurity Answer Date Recorded Food run out past 12 months Not on file 10/20 Food did not last past 12 months Not on file 11/07/2023 Employment Answer Date Recorded Help finding and keeping a job Not on file 0 11/07/2023 Family and Community Support Answer Ulises e Recorded Help with Day to Day Activities Not on file 11/07/2023 Feeling Lonely or Isolated Not on file 11/07 Educational Attainment Answer Date Beto rded Speak language other than [place] at home Not on file 11/07/2023 Want help with school or training Not on file 11/07/2023 Substance Use Answer Date Recorded Used prescription meds for non-medical reasons N ot on file 11/07/2023 Used illegal drugs past 12 months Not on file 11/07/2023 Comments No Sex and Gender Information Value Date Recorded Sex Assigned at Not on file Legal Sex Female 12:46 PM CDT Gender Identity Not on file Sexual Orientation Not on file Last Filed Vital Signs Vital Sign Reading Time Taken Comments Blood Pressure 131/60 02/18/2023 4:19 PM EDT Pulse 68 02/18/2023 4:19 PM EDT Temperature 36.3 C (97.4 F) 02/18/2023 4:12 PM EDT Respiratory Rate 17 02/18/2023 4:19 PM EDT Oxygen Saturation 93% 02/18/2023 4:19 PM EDT Inhaled Oxygen Concentration - - Weight 70.3 kg (155 lb) 02/18/2023 12:19 PM EDT Height 162.6 cm (5' 4.02 ) 02/18/2023 12:19 PM E DT Body Mass Index 26.59 02/18/2023 12:19 PM EDT Plan of Treatment Not on file Medical Devices Implanted Type Area Comber Operator Device Identifier Shelf Expiration Date Model / Serial / Lot Scr Tfna 95mm s - [id number] Implanted:Qty : 1 on 02/18/2023 by Vito Garrett MD at [facility] IMPLANTS Right: Femur SYNTHES:[employer] [place] 08/19/2032 [id number] S / / [id number] Nail Tfn [id number] [id number] Strl Rt s - [id number] Implanted:Qty : 1 on 02/18/2023 by Vito Garrett MD at [facility] IMPLANTS Right: Hip SYNTHES TRAUMA .044 S / / [id number] Insurance [employer] MEDICARE PPO Care Teams Auction Assistant Relationship Specialty Start Date End Date Cherrie Leyva, DISPOSAL PLANT OPERATOR [address] [place], [place] [id number] PCP - General Family Medicine 02/06/23
--- OUTSIDE RECORDS SUMMARY | 2025-05-08 19:00 | XMS_ITS | Continuity of Care Document ---
Author Organization [place] - [employer] [facility] Address [address] [place] [address] Assessment No assessment recorded. Plan of Treatment Reminders Order Date Submit Date Provider Last Modified By Organization Details Last Modified Time Details Appointments FOLLOW UP 30 2025 09:00A M Janell Leyva APRN Not available Not available Not available Lab None recorded. Referral orthopedi c surgeon referral - Malunion right hip fracture in pt with osteoporo sis 2024 025 ARETHA Florez MD, [address] [address], [place], [address], 05/02/2025 16:28:46 Procedures None recorded. Surgeries None recorded. Imaging None recorded. Medication Orders meloxicam 15 mg tablet 2024 025 [facility] (Now [facility]), [address], [place], [address], 05/02/2025 13:38:42 hydrochlo rothiazid e 12.5 mg tablet 2024 025 [facility] (Now [facility]), [address], [place], [address], 05/02/2025 13:38:42 metoprolo l succinate ER 25 mg tablet,ex tended release 24 hr 2024 025 [facility] (Now [facility]), [address] [facility], [place], [address], 05/02/2025 13:38:43 Patient TargetsNo targets recorded. Patient InstructionsNo instructions recorded. Reason for Referral Orthopedic Surgeon Referral for History of hip fracture Malunion right hip fracture in pt with osteoporosis Referring Physician: Cherrie Leyva, Family Medicine, Encounter Date: 05/02/2025 Problems Name Problem SNOMED Code Status Onset Date Resolution Date Notes Provider Name and Address Organization Details Recorded Time Mixed hyperlip idemia 054099598 Completed 201609/02/2017 Problem Code: E78.2; Problem Code Type: ICD-10; Cherrie Leyva APRN [address] [place] [address], [address] , [facility] [employer] [facility] 10:43:49 Hyperten sive disorder 15503986 Completed 201609/23/2018 Problem Code: I10; Problem Code Type: ICD-10; Not Available [facility] 21:27:11 Benign essentia l hyperten rick 7039979 Completed 201604/27/2018 Problem Code: 401.1; Problem Code Type: ICD-9; Not Available [facility] 21:27:14 Otitis externa of bilatera l ears 49014562998 94580 Completed 201706/26/2018 Problem Code: H60.333; Problem Code Type: ICD-10; Not Available [facility] 21:27:11 Acute swimmer' s ear Completed 201706/26/2018 Problem Code: 380.12; Problem Code Type: ICD-9; Not Available [facility] 21:27:14 Lesion of oral mucosa 90688797517 Completed 201711/22/2018 Problem Code: K13.70; Problem Code Type: ICD-10; Not Available [facility] 21:27:11 Body mass index 25-29 - overweig ht 335952126 Completed 201704/16/2020 Problem Code: Z68.28; Problem Code Type: ICD-10; Cherrie Leyva, IT SALES EXECUTIVE [address] [place], [address] , [employer] 5 14:10:09 Disorder of oral soft tissues 64296701 Completed 201711/22/2018 Problem Code: 528.9; Problem Code Type: ICD-9; Not Available [facility] 2 21:27:14 Influenz a vaccine needed 74173011398 06 Completed 201810/25/2022 Problem Code: Z23; Problem Code Type: ICD-10; JACQUELINE ZIEGLERNEAR null, [employer] 3 08:19:57 Impacted cerumen in right ear 79375225783 41593 Completed 201810/25/2022 Problem Code: H61.21; Problem Code Type: ICD-10; JACQUELINE KARLIENEAR null, [employer] 3 08:19:57 Otalgia of right ear 7079928365 Completed 201810/25/2022 JACQUELINE MYNEAR null, [employer] 3 08:19:57 Posterio r rhinorrh ea 92058927 Completed 201810/25/2022 Problem Code: R09.82; Problem Code Type: ICD-10; JACQUELINE KARLIENEAR null, [employer] 3 08:19:57 Influenz a vaccine needed 83105712279 06 Completed 201804/16/2020 Problem Code: Z23; Problem Code Type: ICD-10; JACQUELINE KARLIENEAR null, [employer] 3 08:19:57 Puncture wound of foot 61825865 Completed 201904/16/2020 Problem Code: S91.331A ; Problem Code Type: ICD-10; Not Available [facility] 2 21:27:12 General examinat ion of patient Completed 201910/25/2022 JACQUELINE KARLIENEAR null, [employer] 3 08:19:57 Body mass index 20-24 - normal 622219995 Active 2019 Not Available [facility] 2 21:27:13 Osteopor osis 31817829 Active 2020 Problem Code: M81.0; Problem Code Type: ICD-10; Not Available [facility] 2 21:27:11 Body mass index 25-29 - overweig 307566280 Active 2020 Problem Code: Z68.25; Problem Code Type: ICD-10; Cherrie Leyva APRN [address] [place], [address] , [employer] 5 14:10:09 Otitis externa of right ear 11477849113 37294 Completed 202010/25/2022 Problem Code: H60.331; Problem Code Type: ICD-10; JACQUELINE lopez, [employer] 3 08:19:57 Hypoglyc emia 510994944 Completed 202005/06/2022 Problem Code: E16.2; Problem Code Type: ICD-10; Not Available [facility] 2 21:27:10 Finding of general energy 788867097 Completed 202010/25/2022 Problem Code: R53.83; Problem Code Type: ICD-10; JACQUELINE lopez, [employer] 3 08:19:57 Body mass index 25-29 - overweig 575289259 Completed 202005/06/2022 Problem Code: Z68.26; Problem Code Type: ICD-10; Cherrie Leyva APRN [address] [place], [address] , [employer] 5 14:10:09 Screenin g for malignan t neoplasm of colon Completed 202110/25/2022 JACQUELINE lopez, [employer] 3 08:19:57 Vitamin D deficien 24616151 Active 2023 Sissy Szymanski, [employer] [address], [place], [address] [place] [address] , [employer] 4 10:32:55 Essentia l hyperten rick 81980022 Active 2024 Cherrie Leyva APRN [address] [place] [address], [address] [place] [address] , [employer] 5 10:43:43 Mixed hyperlip idemia 895779622 Active 2024 Problem Code: E78.2; Problem Code Type: ICD-10; Cherrie Leyva APRN [address] [place] [address], [address] [place] [address] , [employer] 5 10:43:49 Chronic cough 98539858 Active 2024 Cherrie Leyva APRN [address] [place] [address], [address] [place] [address] , [employer] 5 13:54:49 Postmeno pausal osteopor osis 322925399 Active 2024 Cherrie Leyva APRN [address] [place] [address], [address] [place] [address] , [employer] 5 14:09:23 Problem Notes None recorded. Procedures Surgical History Date Name Laterality Status Provider Name and Address Organization Details Recorded Time 02/18/20 procedure on femur completed [employer] 04/25/2023 09:12:24 Bilateral Mastectomy completed [employer] 10/25/2022 08:22:51 Nipple/areola reconstruction completed [employer]. 10/25/2022 08:23:13 Imaging Results None recorded. Procedure [...] Updated DateTime 5 162.56 cm 27.2 kg/m2 51456.3 1 g 98 [degF] 57 /min 95 % 95 % 120/69 mm[Hg] JACQUELINE ABDI [employer] 5 13:10:43 Social History Question Answer Notes LastModified by Organizat ion Details LastModified Time Tobacco Smoking Status Never Smoker [facility] Cathie ion: 'Tobacco/ Alcohol/S upplement s'; Bj Diezespo nse: 'Never Smoker'; Not Available [facility] 06/25/2022 22:56:40 Do You Have An [...] Do You Have A Medical Power Of Balloon Dipper? No Information not available 10/25/2022 What Was [...] history of breast cancer Relati ve: ''; [email or web address] Not available 10/25/2022 08:20:31 Notes:*Procedure Description : Documented family medical history in mother*Relative: Mother *Procedure Description: Documented family medical history in father*Relative: Father *Procedure Description: Family medical history unremarkable*Relative: Unspecified Relation *Problem: Relative: ''; Medical History Condition Response Coronary Artery Disease N Gout N Other N Blood Diseases N Kidney Stones N Hyperthyroidism N Breast Cancer N Blood Transfusion N Emergency room visit since last appointm ent. N COPD N Depression N Dermatologic Disorders N Hypothyroidism N Lung Disease N Developmental or Behavioral Disorders N Defects or Inherited Disease N Breast Problem N Difficulty Swallowing N Anesthesia Complications N History of STI N Meniere's disease N Anxiety Disorder N Muscle, Joint, or Bone Problems N Autoimmune disease N Vision or Eye Problems N Arthritis N Polyps N Infertility N Mental Disorder N Congenital Anomalies N Acid Reflux (GERD) N Cancer Y Stroke N Neurologic/Epilepsy N Endometriosis N Bladder or Kidney Problems N High Cholesterol N Liver Disease N Organ Transplant N Psychiatric/Mental Health Condition N Fibromyalgia N Dialysis N Schizophrenia N Headaches N Kidney Disease N Allergies/Hayfever N Heart [...] N Pulmonary Embolism N Tourette Syndrome N Chronic Ear Infections N Pre-Eclampsia N Hypertension N Chicken Pox N Autism Spectrum Disorder (ASD) N Osteoporosis Y Thrombophilias N Gynecological History Statement/Question Response Date of Last Pap Smear Most Recent Mammogram Obstetrics History GPAL:G 0 P 0 0 0 0 Immunizations Vaccine Type Date Status Note Provider Nam e and Address Organization Details Recorded Time RSV, recombinant, protein subunit RSVpreF, adjuvant reconstituted, 0.5 mL, PF 4 completed Cherrie Leyva, IT SALES EXECUTIVE [address] [place], [address] [employer] 11/09/2023 14:53:06 Influenza, adjuvanted, quadrivalent, PF 1 completed JACQUELINE MYNEAR null, [employer] 10/25/2022 08:18:16 COVID-19, mRNA, LNP-S, PF, 100 mcg/0.5mL dose or 50 mcg/0.25mL dose 2 completed JACQUELINE MYNEAR null, [employer] 10/25/2022 08:18:16 Tdap 0 completed JACQUELINE MYNEAR null, [employer] 10/25/2022 08:18:16 COVID-19, mRNA, LNP-S, PF, 100 mcg/0.5mL dose or 50 mcg/0.25mL dose 1 completed JACQUELINE MYNEAR null, [employer] 10/25/2022 08:18:16 COVID-19, mRNA, LNP-S, PF, 100 mcg/0.5mL dose or 50 mcg/0.25mL dose 1 completed JACQUELINE MYNEAR null, [employer] 10/25/2022 08:18:16 Hep A, adult 9 completed JACQUELINE MYNEAR null, [employer] 10/25/2022 08:18:16 Hep A, adult 8 completed JACQUELINE MYNEAR null, [employer] 10/25/2022 08:18:16 Influenza, MDCK, quadrivalent, preservative 9 completed JACQUELINE MYNEAR null, [employer] 10/25/2022 08:18:16 pneumococcal polysaccharide PPV23 8 completed JACQUELINE MYNEAR null, [employer] 10/25/2022 08:18:16 COVID-19, mRNA, LNP-S, PF, 100 mcg/0.5mL dose or 50 mcg/0.25mL dose 1 completed JACQUELINE MYNEAR null, [employer] 10/25/2022 08:18:16 zoster recombinant 5 completed Cherrie Leyva, APOORVA [address] [place], [address], [employer] 10/31/2024 17:52:36 COVID-19, mRNA, LNP-S, bivalent, PF, 50 mcg/0.5 mL or 25mcg/0.25 mL dose 2 completed JACQUELINE MYNEAR null, [employer] 10/25/2022 08:18:16 Influenza, high-dose, quadrivalent, PF 0 completed JACQUELINE MYNEAR null, [employer] 10/25/2022 08:18:16 Influenza, high-dose, trivalent, PF 8 completed JACQUELINE KARLIENEAR null, [employer] 10/25/2022 08:18:16 Td (adult), 2 Lf tetanus toxoid, preservative free, adsorbed 7 completed JACQUELINE MYNEAR null, [employer] 10/25/2022 08:18:16 Influenza, split virus, quadrivalent, PF 2 completed JACQUELINE MYNEAR null, [employer] 10/25/2022 08:18:16 zoster recombinant 5 completed JACQUELINE MYNEAR null, [employer] 05/02/2025 13:48:08 Influenza, adjuvanted, quadrivalent, PF 3 completed Valentinalitzy Parson null, [employer] 05/12/2024 10:12:52 COVID-19, mRNA, LNP-S, PF, kecia-sucrose, 30 mcg/0.3 mL 3 completed Valentina [employer], [employer] 05/12/2024 10:12:52 Past Encounters Encounter ID Performer Location Encounter Start Date Encounter Closed Date Diagnosis/Indication Diagnosis SNOMED-CT Code Diagnosis ICD10 Code Diagnosis Note [id number] Cherrie Leyva APRN [address] [address] 05/02/2025 12:52:11 05/02/2025 13:44:22 Active or passive immunization 698644702 Z23 Preventive procedure 169 253069 Z00.00 Patient presented to office today for [...] promote healthy living. History of hip fracture 454673576 Z87.[address] Florez for second opinion. Essential hypertension 16973812 I10 Continue medication s. DASH diet and weight bearing exercise. Chronic cough 01413107 R 05.3 Mixed hyperlipidemia 267 607451 E78.2 She refuses statin. D/w her Olpe Red w/ Co Q 10 daily. Her HDL cholestero l was 70. She has minimal risk factors. Postmenopa usal osteoporosis 099520560 M81.0 Continue calium w/ D and weight bearing exercise. She developed femur stress fracture whileon Prolia without trauma. Body mass index 25-29 - overweight 483119750 E66.3 Statin declined 50674293 0 Z53.20 Health Concerns Section Related Observation LastModified by Organization Detai ls LastModified Time None Recorded Concern Status LastModified by Organization Details LastModified Time None Recorded Payers Encounter Date Sequence Insurance Name Policy Number Policy Myers Covered Member ID Myers Member ID Guarantor Name 05/02/2025 1 [employer] (MEDICARE REPLACEMENT/A DVANTAGE - PPO) Estela Maharaj [id number] Estela Maharaj Notes Date Note Type Note Provider Name and Address Organization Details Recorded Time 05/02/20 25 text/htm l Annual WellnessReported bypatient.Diet and Nutrition:healthy diet; discussed [...] no swelling; no redness; no warmth; no ecchymosis;catching/locking;mason ing/clicking;instability;radiati on down leg Previous Surgery:surgical procedure: (ORIF right [...] Emergency plan for fall:plan in place WHO CriteriaosteoporosisNotes:Stoppe d prolia due to stress fracture of right femur last year. Pt with Osteoporosis who was on Prolia who developed a stress fracture of right femur in 2022 after she leaned over a piece of furniture. She underwent ORIF left femur with Dr Lissette Patton at [facility]. She has since had persistent pain and instability of the hip which is worse when climbing stairs. She completed PT post op. 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 She would like a second opinion which is certainly reasonable. Cherrie Leyva APRN [address] [place], [address], [facility] [employer] 05/02/2025 14:13:05 OBGyn Episode No OBEpisode recorded.
--- OUTSIDE RECORDS SUMMARY | 2025-05-08 19:00 | XMS_ITS | Clinical Summary ---
Author Organization [employer] [place], [place], [place] Address [address] [place] [address] Care Team Providers Care Conche Operator Name Role Phone Cherrie Leyva APRN Primary Care Provider [phone] Allergies No known active allergies Medications metoprolol [...] Beto rded Speak language other than South African at home Not on file 11/07/2023 Want [...] 02/18/2023 12:19 PM EDT Plan of Treatment Health Maintenance Due Date Last Done Comments CT Colonography 1953 Colonoscopy 1953 Colorectal Cancer Screening 1953 DXA SCAN 1953 FOBT/FIT 1953 Fit-DNA (Cologuard) 1953 Sigmoidoscopy 1953 Depression Screening (12+) 1965 Hepatitis C Screening 1971 Breast Cancer Screening 1993 Shingles Vaccine (Zoster) (1 of 2) 2003 Pneumococcal 50+ years (2 of 2 - PCV) 04/27/2019 04/27/2018 Medicare Initial AWV [id number] 10/21/2019 Tobacco Cessation Counseling and Screening (12+) 02/19/2024 02/18/2023 COVID-19 VACCINE (2023-2 5 season) 2024 08/13/2022, 01/25/2022, 06/21/2021, Additional history exists Falls Risk Screening 10/20/2024 Influenza Vaccine (#1) 2025 , 08/07/2020, 09/01/2019, Additional history exists Respiratory Syncytial Virus (RSV) Adult or (1 - 1-dose 75+ series) 01/06/2028 DTAP/TDAP/TD VACCINES (3 - T d or Tdap) 02/10/2030 02/11/2020, 04/11/1997 Medical Devices Implanted Type Area Summer Child Caregiver Device Identifier Shelf Expiration Date Model / Serial / Lot Scr Tfna 95mm [id number] - [id number] Implanted:Qty : 1 on 02/18/2023 by Vito Garrett MD at [facility] IMPLANTS Right: Femur SYNTHES:[employer] [place] 08/19/2032 [id number] S / / [id number] Nail Tfn [id number] 130d Strl Rt 04.037.044s - [id number] Implanted:Qty : 1 on 02/18/2023 by Vito Garrett MD at [facility] IMPLANTS Right: Hip [employer]THES TRAUMA [id number] S / / [id number] Insurance [employer] MEDICARE PPO Care Teams Conche Operator Relationship Specialty Start Date End Date Cherrie Leyva, PROCESS CONSULTANT [address] [place] [address] PCP - General Family Medicine 02/06/23
--- OUTSIDE RECORDS SUMMARY | 2025-05-08 19:01 | XMS_ITS | Clinical Summary ---
Author Organization Healthcare Address [address] [place] [address] Care Team Providers Care Draw Hand Name Role Phone Henrique Carmen MD Unavailable [phone] Cherrie Leyva APRN Primary Care Provider [phone] Allergies No known active allergies Medications metoprolol tartrate (Lopressor) 25 MG tablet Take by mouth. Active metoprolol succinate XL (Toprol-XL) 25 MG 24 hr tablet Take 1 tablet (25 mg) by mouth 1 (one) time each day. Do not crush or chew. Active hydroCHLOROthiaz lizabeth (HYDRODiuril) 12.5 MG tablet Take 1 tablet (12.5 mg) by mouth 1 (one) time each day. Active meloxicam (Mobic) 15 MG tablet Take 20 mg by mouth 1 (one) time each day. Active simvastatin (Zocor) 20 MG tablet Take 1 tablet (20 mg) by mouth every night. Active Active Problems Problem Noted Date Diagnosed Date Essential hypertension, benign 06/01/2024 Personal history of breast cancer 05/28/2024 Endometrial thickening on ultrasound 05/24/2024 PMB (postmenopausal bleeding) 05/17/2024 Family History Medical History Relation Name Comments Lung cancer Father Breast cancer Mother Breast cancer Sister Relation Name Status Comments Father Mother Sister Social History Tobacco Use Types Packs/Day Years Used Date Smoking Tobacco: Never Smokeless Tobacco: Never Tobacco Cessation:Counseling Given: Not Answered Alcohol Use Standard Drinks/Week Comments Not Currently 0 (1 standard drink = 0.6 oz pur e alcohol) PHQ-2 Answer Date Recorded Patient Health Questionnaire-2 Score 0 08/31/2024 Comments No Sex and Gender Information Value Date Recorded Sex Assigned at Not on file Legal Sex Female 6:49 PM EDT Gender Identity Not on file Sexual Orientation Not on file Last Filed Vital Signs Vital Sign Reading Time Taken Comments Blood Pressure 139/83 08/31/2024 8:58 AM EST Pulse 60 08/31/2024 8:58 AM EST Temperature 36.2 C (97.1 F) 08/31/2024 8:58 AM EST Respiratory Rate 18 08/31/2024 8:58 AM EST Oxygen Saturation 96% 08/31/2024 8:58 AM EST Inhaled Oxygen Concentration - - Weight 73.1 kg (161 lb 2.5 oz) 08/31/2024 8:58 A M EST Height - - Body Mass Index - - Plan of Treatment Health Maintenance Due Date Last Done Comments [facility]-Bone Density Scan 1953 [facility]-Hepatitis C Screening 1953 [facility]-Medicare Annual Wellness (AWV) 1953 [facility]-Infant/Child/Adol SDOH Screenings 1953 [facility]- SDOH Screenings 1971 [facility]-Adult SDOH Screenings 1971 CT Colonography 1998 Colonoscopy 1998 FIT-DNA 1998 FIT 1998 FOBT 1998 Sigmoidoscopy 1998 [facility]-Colorectal Cancer Screening 1998 [facility]-Zoster Vaccines (1 of 2) 2003 [facility]-Pneumococcal Vaccine: 50+ Years (2 of 2 - PCV) 04/27/2019 04/27/2018 [id number] Vaccine ( season) 2024 08/28/2023, 08/13/2022, 01/25/2022, Additional history exists [facility]-Influenza Vaccine (#1) 06/20/202508/28, 07/13/2022, 08/01/2021, Additional history exists [facility]-Depression Screening 08/31/2025 08/31/2024 [facility]-DTaP,Tdap,and Td Vaccines (2 - Td or Tdap) 02/10/2030 02/11/2020, 04/11/1997 [facility]-Hepatitis A Vaccines Aged Out 03/03/2019, 110 06/2018 No longer eligible based on patient's age to complete this topic [facility]-RSV Vaccine: 60+ Years or Completed 10/28/2023 HPV Vaccines Aged Out No longer eligi ble based on patient's age to complete this topic [facility]-HIB Vaccines Aged Out No longer e ligible based on patient's age to complete this topic [facility]-IPV Vaccines Aged Out No longer e ligible based on patient's age to complete this topic [facility]-Rotavirus Vaccines Aged Out No lo nger eligible based on patient's age to complete this topic Insurance [employer] MEDICARE Care Teams Draw Hand Relationship Specialty Start Date End Date Cherrie Leyva APRN [address] [place] [address] PCP - General 06/01/24 Henrique Carmen MD [address] [place] [address] [facility] [address] [place] [address] Consulting Physician Obstetrics and Gynecology 05/26/24
--- NOTE | 2025-05-08 19:16 | HMH.EDGENADL ---
Discharge Plan Disposition Patient Disposition: Home, Self-Care Prescriptions Prescriptions: No Action urea 40 % cream 1 applic topical BID 30 Days Qty: 60 3RF metoprolol succinate 25 mg tablet extended release 24 hr 25 mg PO DAILY hydrochlorothiazide 12.5 mg tablet 12.5 mg PO DAILY meloxicam 15 mg tablet 15 mg PO DAILY simvastatin 20 mg/5 mL (4 mg/mL) suspension 20 mg PO DAILY Referrals Follow up/Referrals: Cherrie Leyva [Primary Care Provider, Medical] - See instructions Activity Restrictions/Add. Instructions Additional Instructions/Restrictions: At this time it was felt you are safe to be discharged home. If new or worsening symptoms please do not hesitate to return the emergency department. They should contact you for your formal venous duplex to screen for blood clot in your leg although I have very low concern better safe to have the full study done. Please follow-up with your family doctor for possible referral for excision if the cyst keeps bothering you. For pain please take Tylenol and ibuprofen every 6 hours. Clinical Impressions Clinical Impression: Calf swelling, Cyst Instructions Patient Instructions: DI for Skin Abscess Print Language Print Language: Serbian Discharge ED Provider: Vickey Ramírez General Adult HPI General Chief complaint: Skin/Abscess/Foreign Body Stated complaint: ? blood clot in right leg Time Seen by Provider: 05/08/25 18:56 Mode of Arrival: Ambulatory Source of Information: Patient Description of Symptoms (Recalled from ER Triage Doc. by RN): PT REPORTS LUMP BEHIND RIGHT KNEE, TINGLING. NO REDNESS OR SWELLING. History of Present Illness HPI narrative: Patient is 70-year-old female with no pertinent past medical history presents emerged part for evaluation of a lump behind her right knee. Patient had a massage and has indwelling hardware in her femur yesterday the massage include the calf. This has resulted in a lump with pain over her left medial proximal calf adjacent to the knee. No trauma. No asymmetric swelling of the lower extremities no other acute complaints at this time. Please note that above description of symptoms, in this electronic medical record under categorization of recalled from ER triage doctor by RN are reflective of an initial nursing assessment, however, is not reflective of my full history and physical exam that was personally taken and clarified. Consequentially, this preceding description of symptoms, which may include the patient's categorized chief complaint in the EMR, do not reflect my personal clinical impression, and the ultimate description of history of present illness and patient stated complaints should be deferred to this section of the note. Unless stated otherwise or congruent with this section of the note, additional signs, symptoms, or incongruence should be interpreted as inaccurate with my clinical impression. Related Data Home Medications ?Medication ?Instructions ?Recorded ?Confirmed hydrochlorothiazide 12.5 mg tablet 12.5 mg PO DAILY 04/29/24 06/22/24 meloxicam 15 mg tablet 15 mg PO DAILY 04/29/24 06/22/24 metoprolol succinate 25 mg 25 mg PO DAILY 04/29/24 06/22/24 tablet,extended release 24 hr simvastatin 20 mg/5 mL (4 mg/mL) 20 mg PO DAILY 04/29/24 06/22/24 oral suspension Previous Rx's ?Medication ?Instructions ?Recorded urea 40 % topical cream 1 applic topical BID 1 month #60 06/22/24 applic Allergies Allergy/AdvReac Type Severity Reaction Status Date / Time No Known Drug Allergies Allergy Unknown Verified 06/22/24 09:40 (NKDA) [facility] Disclaimer: The information contained in this section may have been updated after the patient was seen, as this information can be updated by other users. Medical History Internal fixation device (pin, fawn, or screw) infection-inflammation Breast cancer Surgical History H/O bilateral mastectomy Family History Mother Cancer Social History Smoking Status: Former smoker alcohol intake: current alcohol intake frequency: holidays/special occasions only current occupational status: employed Travel in the last 8 weeks?: None Have you lived/traveled outside US in past 30 days?: No Contact w/someone who lives/traveled outside US past 30 days?: No Exposure to someone with infectious disease in past 14 days?: No Do you have a fever (greater than 100.4 F or 38 C)?: No Have you tested positive for COVID-19?: No Exposed to someone with COVID-19 in past 14 days?: No Do you have a sore throat?: No Do you have a cough?: No Do you have any weakness?: No Do you have any diarrhea?: No Are you experiencing any unusual bleeding?: No Do you have any muscle aches/pain?: No Do you have any abdominal pain?: No Are you experiencing loss of taste or smell?: No Other Medical History Have you received the Pneumonia Vaccine: Yes ROS Obtained: Yes Systems reviewed as appropriate & no additional complaints except as documented Physical Exam General General appearance: alert and in no apparent distress Head Head exam: atraumatic and normocephalic Eye Eye exam: Present PERRL and EOMI ENT ENT exam: Present mucous membranes moist Neck Neck exam: Present normal inspection Chest Chest inspection: Present normal inspection and symmetric chest wall rise Respiratory Respiratory exam: Absent respiratory distress Cardiovascular Cardiovascular exam: Present regular rate and normal rhythm Abdominal Exam Abdominal exam: Present soft Extremities Exam Extremities exam: Present other (Palpable lump over the right proximal medial calf, no popliteal fossa mass or tenderness. No significant erythema) Neurological Exam Neurological exam: Present alert Psychiatric Psychiatric exam: Present normal affect Skin Skin exam: Present warm and dry Medical Decision Making Medical Records Screening: Per USPSTF and CDC recommendations, given the prevalence of disease in our region, it is our hospital?s policy to screen for HIV and viral Hepatitis for all patients aged 18 and over and those with ongoing risk factors. Ajit Inquiry Pt receiving controlled substance: No Vital Signs: 05/08/25 18:50 Temperature 98.0 F Temperature Source Oral Pulse Rate [Radial] 70 Respiratory Rate 18 Blood Pressure [Left Arm] 175/78 H Blood Pressure Mean [Left Arm] 110 Blood Pressure Source [Left Arm] Automatic Cuff Blood Pressure Position [Left Arm] Sitting 02 Sat by Pulse Oximetry 99 Oxygen Delivery Method Room Air Orders (Tests/Meds): ORDERS Category Date Time Status POCUS Point of Care (ER Only) Stat Exams 05/08/25 19:05 Ordered HIV Combo Stat Lab 05/08/25 19:03 Ordered Hepatitis C Ab Qual. W/ RFX Stat Lab 05/08/25 19:03 Ordered Medical Decision Narrative: In summary patient is 70-year-old female past medical history described above presents emergency department for evaluation of proximal swelling. Patient is hemodynamically stable nontoxic-appearing per normal, afebrile. The focal localized swelling underwent [id number]-hj-[id number] ultrasound and it appears to be a cyst with a thick wall and internal fluid collection, no vascular flow, no central thrombosis, and does not appear to have any feeding vessels although there are small ones that are adjacent to it in the leg. Patient has no asymmetric leg swelling no chest pain reported shortness of breath. Given this and the fact that I feel it is a cyst anticoagulation will be deferred however out of an abundance of caution patient will undergo full venous Doppler ultrasound tomorrow and the order was sent appropriately by charge nurse at this time. Patient is appropriate for discharge and was given return precautions Procedure: Procedure performed [id number] ultrasound. Procedure performed os of Ramírez. Linear probe fanned over the area of tenderness over her right medial proximal calf. There appears to be a 1.2 x 1.8 circumferential indurated cyst versus mass with central hypoechoic fluid collection without color-flow. There appear to be no feeding vessels. It is very superficial. Patient tolerated procedure well and images were saved to the permanent archive and did necessitate further imaging and were technically adequate. Critical Care Critical Care Time Critical Care Time: No
[2025-05-08 20:08] VITALS: BP 133/62; PULSE 72; RESP 18; TEMP 36.6; O2SAT 98
== END 2025-05-08 19:40 | disposition home or self-care (01) ==
PROVIDERS: Emergency Provider Emergency Medicine; PCP Nurse Practitioner Family
DX: M79.89 Other specified soft tissue disorders (principal); L72.9 Follicular cyst of the skin and subcutaneous tissue, unspecified
CPT/HCPCS: 99284

== ENCOUNTER 2025-05-09 15:26 | Outpatient (CLI) | payer MEDICARE, SELFPAY ==
--- NOTE | 2025-05-09 | CA_ITS ---
FINAL REPORT TECHNIQUE: Compression geronimo scale and Doppler evaluation CLINICAL HISTORY: RLE calf swelling, HTN. Denies trauma. States she received a massage Friday and a knot appeared in the mid posterior right calf the next day. FINDINGS: Femoral and popliteal veins show normal compressibility and flow. Visualized portion of the calf veins are patent by Doppler exam. There is a hypoechoic cystic like abnormality measuring 8 x 4 mm in the posterior calf. There may be surrounding hypoechoic tissue which could represent a solid mass measuring 2.8 x 1.2 cm. IMPRESSION: No evidence of right lower extremity deep venous thrombosis Small cystic lesion in the posterior right calf with possible surrounding larger solid lesion. Recommend follow-up ultrasound in 2 months if abnormality fails to improve clinically. Reviewed, Interpreted and Dictated by Austin Storey MD Transcribed by Mary Jo Frederick Authenticated and . [facility] [place]
--- OUTSIDE RECORDS SUMMARY | 2025-05-09 15:28 | XMS_ITS | Referral Summary ---
Author Organization [employer] ([place], [place], [place], [place]) Address [address] [place] [address] Care Team Providers Care Grocery Clerk Checking Name Role Phone Cherrie Leyva APRN Primary Care Provider [phone] Allergies No known active allergies Medications metoprolol [...] Date Beto rded Speak language other than Dutch at home Not on file 11/07/2023 Want [...] on file Medical Devices Implanted Type Area Fence Maker Device Identifier Shelf Expiration Date Model / Serial / Lot Scr Tfna 95mm s - [id number] Implanted:Qty : 1 on 02/18/2023 by Vito Garrett MD at [facility] IMPLANTS Right: Femur SYNTHES:[employer] [place] 08/19/2032 04.038.195 S / / [id number] Nail Tfn [id number] 130d Strl Rt s - [id number] Implanted:Qty : 1 on 02/18/2023 by Vito Garrett MD at [facility] IMPLANTS Right: Hip SYNTHES TRAUMA .044 S / / 123 Insurance [employer] MEDICARE PPO Care Teams Grocery Clerk Checking Relationship Specialty Start Date End Date Cherrie Leyva, WATER QUALITY SPECIALIST [address] [place], [place] [id number] PCP - General Family Medicine 02/06/23
--- OUTSIDE RECORDS SUMMARY | 2025-05-09 15:29 | XMS_ITS | Clinical Summary ---
Author Organization [facility] Address [address] [place] [address] Care Team Providers Care Reed Man Name Role Phone Provider, No Known Primary [...] - NON PAR on file Care Teams Reed Man Relationship Specialty Start Date End Date Provider, No Known [facility] [place] [address] PCP - General 07/06/18
--- OUTSIDE RECORDS SUMMARY | 2025-05-09 15:29 | XMS_ITS | Encounter Summary ---
Author Organization [employer] ([place], [place], [place], [place]) Address [address] [place] [address] Care Team Providers Care Rack Puncher Name Role Phone Cherrie Leyva APRN Primary Care Provider [phone] Reason for Referral * Nuclear Medicine (Routine) - Closed Specialty Diagnoses / Procedures Referred By Tatiana t Referred To Contact Diagnoses Left hip pain Right hip pain Procedures NM bone scan whole body Provider, Not In System [place] Referral ID Status Reason Start Date Expiration Date Visits Re quested Visits Authorized [id number] Closed 01/24/2023 07/23/2023 1 1 Encounter Details Date Type Department Care Team (Late st Contact Info) Description 01/24/2023 Outside Orders [facility] Central Scheduling [address] [place] [address] Althea Pickard RN Bilateral hip [...] thigh documented in this encounter Care Teams Rack Puncher Relationship Specialty Start Date End Date Cherrie Leyva, COVER STRIPPER [address] [place] [address] PCP - General Family Medicine 02/06/23 documented as of this encounter
--- OUTSIDE RECORDS SUMMARY | 2025-05-09 15:29 | XMS_ITS | Clinical Summary ---
Author Organization [facility] Address [address] [place] [address] Care Team Providers Care Edge Glue Machine Tender Name Role Phone Henrique Carmen MD Unavailable [phone] Cherrie Leyva APRN Primary Care Provider [phone] Allergies No known active allergies Medications metoprolol [...] (2 of 2 - PCV) 04/27/2019 04/27/2018 [id number] Vaccine ( season) 2024 08/28/2023, 08/13/2022, 01/25/2022, [...] this topic Insurance HUMANA MEDICARE Care Teams Edge Glue Machine Tender Relationship Specialty Start Date End Date Cherrie Leyva APRN [address] [place] [address] PCP - General 06/01/24 Henrique Carmen MD [address] [place] [address] [facility] [address] [place] [address] Consulting Physician Obstetrics and Gynecology 05/26/24
--- OUTSIDE RECORDS SUMMARY | 2025-05-09 15:29 | XMS_ITS | Clinical Summary ---
Author Organization [employer] ([place], [place], [place], [place]) Address [address] [place] [address] Care Team Providers Care Transitions Rn Care Coordinator Name Role Phone Cherrie Leyva APRN Primary Care Provider [phone] Allergies No known active allergies Medications metoprolol [...] Date Beto rded Speak language other than Puerto Rican at home Not on file 11/07/2023 Want [...] 02/11/2020, 04/11/1997 Medical Devices Implanted Type Area Parent Trainer Device Identifier Shelf Expiration Date Model / Serial / Lot Scr Tfna 95mm 04.038.195s - [id number] Implanted:Qty : 1 on 02/18/2023 by Vito Garrett MD at [facility] IMPLANTS Right: Femur SYNTHES:[employer] [place] 08/19/2032 04.038.195 S / / [id number] Nail Tfn [id number] 130d Strl Rt 04.037.044s - [id number] Implanted:Qty : 1 on 02/18/2023 by Vito Garrett MD at [facility] IMPLANTS Right: Hip SYNTHES TRAUMA 04.037.044 S / / 123 Insurance HU[employer] MEDICARE PPO Care Teams Transitions Rn Care Coordinator Relationship Specialty Start Date End Date Cherrie Leyva, BANQUET ATTENDANT [address] [place] [address] PCP - General Family Medicine 02/06/23
== END 2025-05-09 23:59 | disposition home or self-care (01) ==
LOC: RT 15:27
PROVIDERS: PCP Nurse Practitioner Family; Visit Provider Emergency Medicine
DX: M79.89 Other specified soft tissue disorders (principal); I10 Essential (primary) hypertension; R93.6 Abnormal findings on diagnostic imaging of limbs
CPT/HCPCS: 93971